=== PATIENT | male | born 1960 | race Caucasian/White ===

== ENCOUNTER 2018-10-08 11:23 | Inpatient (IN) ==
--- NOTE | 2018-10-08 11:34 | Emergency Department Note ---
Disposition Clinical Impression: Chest pain Qualifiers: Chest pain type: unspecified Qualified Code(s): R07.9 - Chest pain, unspecified Post-operative infection Qualifiers: Encounter type: initial encounter Postoperative infection type: deep incisional surgical site Qualified Code(s): T81.42XA - Infection following a procedure, deep incisional surgical site, initial encounter Sepsis Qualifiers: Sepsis type: sepsis due to unspecified organism Qualified Code(s): A41.9 - Sepsis, unspecified organism Disposition: Home, Self-Care Condition: Good Instructions: Chest Pain (ED) Referrals: Ashley Epps [employer] [Primary Care Provider] - Time of Disposition: 14:42 General Adult HPI - General Stated complaint: LOW BP Time Seen by Provider: 10/08/18 11:31 Source: patient, EMS Mode of arrival: EMS Limitations: no limitations Nursing Notes Reviewed: Yes Vital Signs Reviewed: Yes - History of Present Illness HPI Narrative: Patient presents to the ED with low blood pressure. Patient had a follow-up appointment today at the cancer center. He has newly diagnosed lung cancer. He is status post partial pneumonectomy with residual chest tube in place in the right chest wall. He states last night he was soaking wet and felt feverish but did not check it. He has had increasing, dark drainage in the chest tube. He is also had increasing pain in the area. Has not taken his [place] with no relief. EMS states that he was normotensive with them. - Related Data Home Medications Medication Instructions Recorded Confirmed Aspirin 81 mg PO DAILY 07/04/17 10/08/18 Atorvastatin Calcium [Lipitor] 20 mg PO DAILY 07/04/17 10/08/18 Citalopram Hydrobromide 40 mg PO DAILY 07/04/17 10/08/18 [Citalopram HBr] Dulaglutide [Trulicity] 1.5 mg IJ GATICA 07/04/17 10/08/18 Insulin Glargine,Hum.rec.anlog 95 unit SQ DAILY 07/04/17 10/08/18 [Toujeo Solostar] Losartan Potassium [Cozaar] 100 mg PO DAILY 07/04/17 10/08/18 Metformin HCl [Metformin HCl ER] 1,000 mg PO BID 07/04/17 10/08/18 Metoprolol XL (24 HR) Succ [Toprol 100 mg PO DAILY 07/04/17 10/08/18 XL] Tamsulosin HCl [Flomax] 0.4 mg PO DAILY 07/04/17 10/08/18 Fluticasone Propionate Nasal 1 - 2 spray NS DAILY 08/29/18 10/08/18 [Flonase] Insulin ASPART [Novolog Flexpen] 5 unit SQ DAILY 08/29/18 10/08/18 Albuterol Sulfate [Ventolin Hfa] 2 puff IH Q4H PRN 09/26/18 10/08/18 Cyanocobalamin/Folic AC/Vit B6 1 tab PO DAILY 09/26/18 10/08/18 [Folbee Tablet] Icosapent Ethyl [Vascepa] 2 cap PO BID 09/26/18 10/08/18 hydroCHLOROthiazide 25 mg PO DAILY 09/26/18 10/08/18 [Hydrochlorothiazide] Loratadine/Pseudoephedrine 1 tab PO DAILY PRN 09/27/18 10/08/18 [Allergy Relief D-24Hr Tablet] Ferrous Sulfate PO DAILY 10/08/18 Allergies Allergy/AdvReac Type Severity Reaction Status Date / Time canagliflozin [From Invokana] Allergy Rash Verified 10/08/18 11:36 dapagliflozin [From Farxiga] Allergy Blister Verified 10/08/18 11:36 oxycodone [Oxycodone] Allergy Rash Verified 10/08/18 11:36 All systems ED: reviewed and negative except as stated. Constitutional: Reports: fever, chills Cardiovascular: Reports: chest pain. Denies: palpitations Respiratory: Reports: dyspnea. Denies: wheezes Gastrointestinal: Denies: nausea, vomiting, diarrhea Past Medical History - Past Medical History Attestation: Yes The following information was validated with the patient. Source: patient Medical history: Reports: arthritis, cancer, diabetes, hyperlipidemia, hypertension, thyroid disease Surgical history: Reports: no surgical history, non-contributory Psychiatric history: Reports: anxiety, depression, PTSD - Social History Smoking Status: Former smoker Smokeless Tobacco Status: No Alcohol use: Reports: none Drug use: Reports: none Physical Exam Awake and alert in no distress. Patient became visibly dyspneic when he sat up, but it resolved with rest. - General Limitations: no limitations General appearance: alert, in no apparent distress - Head Head exam: atraumatic, normocephalic - Eye Eye exam: Present: normal appearance - ENT ENT exam: mucous membranes moist - Neck Neck exam: Present: normal inspection - Chest Chest inspection: Present: symmetric chest wall rise, other (Chest tube present in the right lateral chest wall.) - Respiratory Respiratory exam: Present: normal lung sounds bilaterally - Cardiovascular Cardiovascular exam: Present: regular rate, normal rhythm - Abdominal Exam Abdominal exam: Present: soft, Non-Tender - Neurological Exam Neurological exam: Present: alert, oriented X3 - Psychiatric Psychiatric exam: Present: normal affect - Skin Skin exam: Present: warm, dry Course - Reevaluation(s) Reevaluation #1: Patient feeling better after pain medication. Patient has a leukocytosis with a bandemia. He has been normotensive here. He is received IV Zosyn and vancomycin. We will add Levaquin for double pseudomonas coverage. Dr. Ross was seen in consult. Admitted to medicine. Patient is hemolytically stable at this time. Time: 14:40 - Consultations Consultation #1: Dr Fry accepts. Dr Castellon agrees with plan and will see in consultation. Time: 14:40 Vital Signs Temperature 98.1 F 10/08/18 11:27 Pulse Rate 109 10/08/18 11:27 Respiratory Rate 20 10/08/18 11:27 Blood Pressure 106/66 10/08/18 11:27 O2 Sat by Pulse Oximetry 95 10/08/18 11:27 Temperature 98.1 F 10/08/18 11:27 Pulse Rate 103 10/08/18 14:12 Respiratory Rate 18 10/08/18 14:12 Blood Pressure 100/63 10/08/18 14:12 O2 Sat by Pulse Oximetry 95 10/08/18 14:12 Oxygen Delivery Oxygen Delivery Room Air Medical Decision Making - Lab Data Result diagrams: 10/08/18 11:40 10/08/18 11:40 Lab Results 10/08/18 10/08/18 10/08/18 Range/Units 11:40 11:40 11:40 WBC 32.7 H* D (4.3-11.1) K/mcL RBC 4.51 (4.19-5.50) M/mcL Hgb 12.9 (12.9-16.9) g/dL Hct 38.5 (37.5-50.1) % MCV 85.4 (83.0-100.0) fL MCH 28.6 (28.0-33.3) pg MCHC 33.5 (31.6-35.5) g/dL RDW 14.4 (11.5-14.5) % Plt Count 324 (140-400) K/mcL MPV 10.2 (9.4-12.4) fL Seg Neutrophils % 80.0 % Band Neutrophils % 16.0 H (0-4) % Lymphocytes % 2.0 % Basophils % 2.0 % Neutrophils # 31.4 H (1.6-8.9) K/mcL Lymphocytes # 0.7 (0.6-4.6) K/mcL Basophils # 0.7 H (0.0-0.2) K/mcL Platelet Estimate Normal (Normal) PT 14.0 H (9.4-12.1) Seconds INR 1.2 APTT 36.2 H (26.0-36.0) Seconds Sodium 128 L (136-145) mEq/L Potassium 5.1 (3.5-5.1) mEq/L Chloride 93 L (98-107) mEq/L Carbon Dioxide 23 (23-29) mEq/L BUN 20 (6-20) mg/dL Creatinine 1.20 (0.70-1.30) mg/dL Est GFR ( Amer) > 60 (> 60) Est GFR (Non-Af Amer) > 60 (> 60) BUN/Creatinine Ratio 17 (6-26) Glucose 280 H (70-105) mg/dL Calculated Osmolality 279 L (280-300) Lactic Acid (0.5-2.2) mmol/L Calcium 8.9 (8.6-10.3) mg/dL Phosphorus 3.7 (2.7-4.5) mg/dL Magnesium 1.6 (1.6-2.6) mg/dL Total Bilirubin 0.9 (0.3-1.0) mg/dL Direct Bilirubin 0.2 (0.0-0.2) mg/dL Indirect Bilirubin 0.7 (0.0-1.2) mg/dL AST 17 (13-39) Units/L ALT 24 (7-52) Units/L Alkaline Phosphatase 85 (34-104) Units/L Troponin I 0.04 H* (< 0.04) ng/mL Serum Total Protein 6.6 (6.4-8.9) g/dL Albumin 3.7 (3.5-5.7) g/dL Globulin 2.9 (2.4-3.5) g/dL Albumin/Globulin Ratio 1.3 (1.1-2.2) 10/08/18 Range/Units 11:40 WBC (4.3-11.1) K/mcL RBC (4.19-5.50) M/mcL Hgb (12.9-16.9) g/dL Hct (37.5-50.1) % MCV (83.0-100.0) fL MCH (28.0-33.3) pg MCHC (31.6-35.5) g/dL RDW (11.5-14.5) % Plt Count (140-400) K/mcL MPV (9.4-12.4) fL Seg Neutrophils % % Band Neutrophils % (0-4) % Lymphocytes % % Basophils % % Neutrophils # (1.6-8.9) K/mcL Lymphocytes # (0.6-4.6) K/mcL Basophils # (0.0-0.2) K/mcL Platelet Estimate (Normal) PT (9.4-12.1) Seconds INR APTT (26.0-36.0) Seconds Sodium (136-145) mEq/L Potassium (3.5-5.1) mEq/L Chloride (98-107) mEq/L Carbon Dioxide (23-29) mEq/L BUN (6-20) mg/dL Creatinine (0.70-1.30) mg/dL Est GFR ( Amer) (> 60) Est GFR (Non-Af Amer) (> 60) BUN/Creatinine Ratio (6-26) Glucose (70-105) mg/dL Calculated Osmolality (280-300) Lactic Acid 2.9 H (0.5-2.2) mmol/L Calcium (8.6-10.3) mg/dL Phosphorus (2.7-4.5) mg/dL Magnesium (1.6-2.6) mg/dL Total Bilirubin (0.3-1.0) mg/dL Direct Bilirubin (0.0-0.2) mg/dL Indirect Bilirubin (0.0-1.2) mg/dL AST (13-39) Units/L ALT (7-52) Units/L Alkaline Phosphatase (34-104) Units/L Troponin I (< 0.04) ng/mL Serum Total Protein (6.4-8.9) g/dL Albumin (3.5-5.7) g/dL Globulin (2.4-3.5) g/dL Albumin/Globulin Ratio (1.1-2.2) - Radiology Data Radiology results reviewed: Yes I reviewed the patient's radiology results. Chest X-Ray 10/08/18 11:32 IMPRESSION: Right thoracostomy tube in place. Previously noted right pneumothorax is not appreciated on today's study. Small right pleural effusion with adjacent atelectasis. D/ / Jovana Bangura MD / Jovana Bangura MD Interpreting Provider: Jovana Bangura MD Chest CT 10/08/18 12:23 IMPRESSION: 1. Postsurgical changes from right upper and middle lobectomies. There is a right thoracostomy tube in place with associated small right hydropneumothorax. Mild stranding along the right thoracostomy tube with associated debris within the tube itself is noted. 2. Subcutaneous emphysema in the right chest wall. 3. Small amount of fluid in the right mediastinum with a small focal collection in the right paratracheal space measuring 3.6 x 2.2 cm foci of gas. Findings may be postsurgical in etiology, however infection is not excluded. Small amount of pneumomediastinum in the anterior aspect is also noted. 4. Trace perihepatic ascites with at least 2 discrete extraluminal foci of gas adjacent to the lateral liver. No other claude pneumoperitoneum. 5. Post-thoracotomy changes involving the right 6th and 7th ribs. These rib fractures appear slightly more displaced radiographically when compared to immediate postoperative film from 09/26/2018. Asymmetric enlargement of the right lateral chest wall musculature with mixed density likely reflecting areas of evolving hematoma secondary to recent surgery. D/ / 10/08/2018 14:01:04 Jovana Bangura MD / ml Interpreting Provider: Jovana Bangura MD - EKG Data EKG #1 EKG attestation: Yes I reviewed and interpreted this EKG. EKG results narrative: EKG sinus tach at 110. Normal QRS. Normal ST segments. Normal axis. Unchanged from prior EKG other than the tachycardia. Critical Care Time Critical Care Time: Yes Total Critical Care Time: 40 Attestation: Critical care performed: Time is exclusive of separately billable procedures. Time includes: direct patient care, patient reassessment, coordination of patient care, interpretation of data (laboratory data, radiology data, and respiratory data), review of patient's medical records, medical consultation and documentation of patient care. Procedures included in critical care time: Procedures excluded from critical care time:
[2018-10-08] MEDS ORDERED: 0.9 % Sodium Chloride 1,000 ML IVC ONE (11:47)
[2018-10-08] MEDS ORDERED: *HR* FentaNYL (PF) 100 MCG/2 ML VIAL IVP ONE (11:47)
[2018-10-08] MEDS ORDERED: Isovue-370 500 ML BOTTLE IVP ONE (12:23)
[2018-10-08 12:25] LABS: Mean Corpuscular HGB Conc 33.5 g/dL (31.6-35.5); Mean Corpuscular Hemoglobin 28.6 pg (28.0-33.3)
[2018-10-08 12:26] LABS: Hematocrit 38.5 % (37.5-50.1); Hemoglobin 12.9 g/dL (12.9-16.9); Mean Corpuscular Volume 85.4 fL (83.0-100.0); Mean Platelet Volume 10.2 fL (9.4-12.4); Platelet Count 324 K/mcL (140-400); Red Blood Count 4.51 M/mcL (4.19-5.50); Red Cell Distribution Width 14.4 % (11.5-14.5)
[2018-10-08 12:30] LABS: INR 1.2
[2018-10-08 12:33] LABS: Activated Partial Thrombo Time 36.2 Seconds (26.0-36.0)
[2018-10-08] MEDS ORDERED: Piperacillin/Tazobactam 3.375 GM in Water for inj. (sterile) 20 ML 20 ML IVP ONE (12:40)
[2018-10-08 12:47] LABS: BUN/Creatinine Ratio 17 (6-26); Blood Urea Nitrogen 20 mg/dL (6-20); Carbon Dioxide 23 mEq/L (23-29); Chloride 93 mEq/L (98-107); Glucose 280 mg/dL (70-105); Potassium 5.1 mEq/L (3.5-5.1); Sodium 128 mEq/L (136-145); eGFR For Non-African Americans > 60 (> 60)
[2018-10-08 12:48] LABS: Alanine Aminotransferase 24 Units/L (7-52); Albumin 3.7 g/dL (3.5-5.7); Albumin/Globulin Ratio 1.3 (1.1-2.2); Alkaline Phosphatase 85 Units/L (34-104); Aspartate Amino Transferase 17 Units/L (13-39); Bilirubin,Direct 0.2 mg/dL (0.0-0.2); Bilirubin,Indirect 0.7 mg/dL (0.0-1.2); Bilirubin,Total 0.9 mg/dL (0.3-1.0); Calcium 8.9 mg/dL (8.6-10.3); Globulin 2.9 g/dL (2.4-3.5); Magnesium 1.6 mg/dL (1.6-2.6); Osmolality,Calculated 279 (280-300); Phosphorous 3.7 mg/dL (2.7-4.5); Total Protein 6.6 g/dL (6.4-8.9); Troponin I 0.04 ng/mL (< 0.04)
[2018-10-08 13:10] LABS: Basophils # 0.7 K/mcL (0.0-0.2); Lymphocytes # 0.7 K/mcL (0.6-4.6); Neutrophils # 31.4 K/mcL (1.6-8.9); Platelet Estimate Normal (Normal)
[2018-10-08] MEDS ORDERED: *HR* HYDROmorphone (PF) 1 MG/ML SYRINGE IVP ONE (14:04)
[2018-10-08] MEDS ORDERED: Levofloxacin 750 MG/150 ML 750 MG/150 ML BAG IVPB ONE (14:32)
--- NOTE | 2018-10-08 16:49 | Internal Med History&Physical ---
Date of Encounter: 10/08/18 Time of Encounter: 16:45 Internal Medicine - H&P: HPI Chief complaint: Generalized weakness, dizziness Admitted From: Emergency Dept Plans for Post Hospital Care: Home History of present illness: Mr. Cooper is a 58 year old male patient with history of diabetes, hypertension and hyperlipidemia, lung cancer status post recent right upper and middle bilobectomy, lymph node resection for right upper lobe lung cancer presented to the ER from oncology clinic due to concerns for sepsis. Patient was noted to have low blood pressure at the clinic weak and tired for the past couple of days. He felt very dizzy yesterday. He has right-sided chest pain related to his cancer and recent surgery. Also has some shortness of breath. He has not had any fevers or chills recently. He was supposed to start chemotherapy 30 days after his surgery. He received IV fluids in the ER along with antibiotics with some improvement in his symptoms. Denies any nausea or vomiting. No diarrhea. No abdominal pain. Past Med Surg Social Fam HX - Past Medical History Medical history: arthritis, cancer, diabetes, hyperlipidemia, hypertension, thyroid disease Additional medical history: sleep apnea. 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 BPH, lung CA Psychiatric history: anxiety, depression, PTSD - Past Surgical History Surgical History: no surgical history, non-contributory Additional surgical history: septoplasty & turbinate reduction, portions of R lung removed-CA - Social History Smoking Status: Former smoker Smokeless Tobacco Status: No Alcohol use: none Drug use: none - Additional Family History Additional family history: Family history reviewed and found to be nonco ntributory at this time Internal Medicine - H&P: Meds Aspirin 81 mg PO DAILY 07/04/17 [History] Atorvastatin Calcium [Lipitor] 20 mg PO DAILY 07/04/17 [History] Citalopram Hydrobromide [Citalopram HBr] 40 mg PO DAILY 07/04/17 [History] Dulaglutide [Trulicity] 1.5 mg IJ GATICA 07/04/17 [History] Insulin Glargine,Hum.rec.anlog [Concepcion Solostwilma] 95 unit SQ HS 07/04/17 [History] Losartan Potassium [Cozaar] 100 mg PO DAILY 07/04/17 [History] Tamsulosin HCl [Flomax] 0.4 mg PO DAILY 07/04/17 [History] Fluticasone Propionate Nasal [Flonase] 2 spray NS DAILY 08/29/18 [History] Insulin ASPART [Novolog Flexpen] 5 unit SQ DAILY 08/29/18 [History] Albuterol Sulfate [Ventolin Hfa] 2 puff IH Q4H PRN 09/26/18 [History] Cyanocobalamin/Folic AC/Vit B6 [Folbee Tablet] 1 tab PO DAILY 09/26/18 [History] Icosapent Ethyl [Vascepa] 2 cap PO BID 09/26/18 [History] hydroCHLOROthiazide [Hydrochlorothiazide] 25 mg PO DAILY 09/26/18 [History] Loratadine/Pseudoephedrine [Allergy Relief D-24Hr Tablet] 1 tab PO DAILY PRN 09/27/18 [History] Amiodarone [Cordarone] 200 mg PO DAILY 10/08/18 [History] Ferrous Sulfate [Iron] 325 mg PO DAILY 10/08/18 [History] Gabapentin [Neurontin] 300 mg PO TID 10/08/18 [History] Metoprolol Succinate [Toprol Xl] 100 mg PO DAILY 10/08/18 [History] metFORMIN [Glucophage] 1,000 mg PO BIDWM 10/08/18 [History] Allergy/AdvReac Type Severity Reaction Status Date / Time [facility] Allergy Rash Verified 10/08/18 11:36 dapagliflozin [From Farxiga] Allergy Blister Verified 10/08/18 11:36 oxycodone [Oxycodone] Allergy Rash Verified 10/08/18 11:36 All Systems PM: A 10-system review of systems was performed and is negative for pertinent findings except as documented above in the HPI. - Constitutional Constitutional: fatigue, lethargy, malaise, weakness, no chills, no fever(s), no night sweats - EENT Eyes: no change in vision, no discharge, no pain, no photophobia Ears: no ear discharge, no ear pain, no tinnitus Nose, mouth and throat: no dysphagia, no nasal discharge, no neck pain, no sore throat - Cardiovascular Cardiovascular ROS IM: lightheadedness, no chest pain, no diaphoresis, no dyspnea, no palpitations, no syncope - Respiratory Respiratory: no cough, no dyspnea, no wheezing, no excessive phlegm production - Gastrointestinal Gastrointestinal: no abdominal pain, no diarrhea, no hematemesis, no dinh tochezia, no melena, no nausea, no vomiting - Musculoskeletal Musculoskeletal ROS IM: no numbness, no tingling - Integumentary Integumentary IM: no rash, no unusual bruising - Neurological Neurological ROS: no confusion, no convulsions, no focal weakness, no numbness, no tingling, no tremor(s) - Hematologic/Lymphatic Hematologic/Lymphatic: no easy bruising - Constitutional Vitals: Temp Pulse Resp BP Pulse Ox 98.1 F 109 25 139/82 96 10/08/18 16:18 10/08/18 16:18 10/08/18 16:18 10/08/18 16:18 10/08/18 16:18 General appearance: Present: cooperative, mild distress, A&O X 3, morbidly obese, pleasant, answers questions appropriately Exam: General: Patient is alert, mild distress, oriented x 3 Head: atraumatic, normocephalic, ENT: Mucous membranes moist Eye: normal appearance, PERRL, no scleral icterus, no conjunctival injection Neck: normal inspection, trachea midline, full ROM, no carotid bruits Chest: normal inspection, symmetric chest rise Respiratory: Decreased breath sounds in the right lung space. Right-sided chest tube in place. Cardiovascular: Regular rate and rhythm. s1 and s2 normal No clicks, rubs, ga llops, or murmurs. Mild bilateral pitting pedal edema Abdomen: Abdomen is soft, nontender. Bowel sounds are present Musculoskeletal: Spontaneously moving all extremities Skin: warm, dry, intact. Neuro: Alert oriented x 3 normal cranial nerves, no focal deficits Psych: Patient's affect is normal Internal Med - H&P Results - Labs CBC & Chem 7: 10/08/18 11:40 10/08/18 11:40 Labs: Short CBC 10/08/18 Range/Units 11:40 WBC 32.7 H* D (4.3-11.1) K/mcL Hgb 12.9 (12.9-16.9) g/dL Hct 38.5 (37.5-50.1) % Plt Count 324 (140-400) K/mcL Neutrophils # 31.4 H (1.6-8.9) K/mcL BMP 10/08/18 11:40 Sodium 128 L Potassium 5.1 Chloride 93 L Carbon Dioxide 23 BUN 20 Creatinine 1.20 Glucose 280 H Calcium 8.9 Cardiac Enzymes 10/08/18 Range/Units 11:40 Troponin I 0.04 H* (< 0.04) ng/mL Liver Function 10/08/18 Range/Units 11:40 Total Bilirubin 0.9 (0.3-1.0) mg/dL Direct Bilirubin 0.2 (0.0-0.2) mg/dL AST 17 (13-39) Units/L ALT 24 (7-52) Units/L Alkaline Phosphatase 85 (34-104) Units/L Albumin 3.7 (3.5-5.7) g/dL - Impressions ITS Impressions Chest X-Ray 10/08/18 11:32 IMPRESSION: Right thoracostomy tube in place. Previously noted right pneumothorax is not appreciated on today's study. Small right pleural effusion with adjacent atelectasis. D/ / Jovana Bangura MD / Jovana Bangura MD Interpreting Provider: Jovana Bangura MD Chest CT 10/08/18 12:23 IMPRESSION: 1. Postsurgical changes from right upper and middle lobectomies. There is a right thoracostomy tube in place with associated small right hydropneumothorax. Mild stranding along the right thoracostomy tube with associated debris within the tube itself is noted. 2. Subcutaneous emphysema in the right chest wall. 3. Small amount of fluid in the right mediastinum with a small focal collection in the right paratracheal space measuring 3.6 x 2.2 cm foci of gas. Findings may be postsurgical in etiology, however infection is not excluded. Small amount of pneumomediastinum in the anterior aspect is also noted. 4. Trace perihepatic ascites with at least 2 discrete extraluminal foci of gas adjacent to the lateral liver. No other claude pneumoperitoneum. 5. Post-thoracotomy changes involving the right 6th and 7th ribs. These rib fractures appear slightly more displaced radiographically when compared to immediate postoperative film from 09/26/2018. Asymmetric enlargement of the right lateral chest wall musculature with mixed density likely reflecting areas of evolving hematoma secondary to recent surgery. D/ / 10/08/2018 14:01:04 Jovana Bangura MD / ml Interpreting Provider: Jovana Bangura MD - Assessment and Plan (1) Sepsis Current Visit: Yes Status: Suspected Assessment and plan: Patient presents with symptoms of sepsis related to possible infection in the right lung space following recent surgery. Drainage from chest tube appears purulent. Consult with cardiothoracic surgery. Will place patient on broad- spectrum antibiotics. High risk for complications. Lactic acid 2.9 initially. We will check the levels later again. Patient was hypotensive initially but blood pressure has improved after aggressive fluid management in the ER. We will continue to monitor input and output. Qualifiers: Sepsis type: methicillin resistant Staphylococcus aureus Qualified Code(s): A41.02 - Sepsis due to Methicillin resistant Staphylococcus aureus (2) Diabetes mellitus, insulin dependent (IDDM), controlled Current Visit: Yes Status: Chronic Assessment and plan: Blood sugars elevated at this time. Will place patient on sliding scale insulin. (3) Essential hypertension Current Visit: Yes Status: Chronic Assessment and plan: Monitor blood pressure. Resume home medications when blood pressure tolerates (4) Postoperative atrial fibrillation Current Visit: Yes Status: Chronic Assessment and plan: History of postoperative atrial fibrillation currently appears to be in sinus tachycardia. He is on amiodarone. We will resume this medication. - Time Spent With Patient Total time spent is greater than 50% in coordination of care (as documented) at patient's floor/unit and/or counseling patient:
[2018-10-08] MEDS ORDERED: Acetaminophen 325 MG TABLET PO PRN (18:00)
[2018-10-08] MEDS ORDERED: Vancomycin 0 MG in 0.9 % Sodium Chloride 250 ML IVPB SCH (18:00)
[2018-10-08] MEDS: *HR* Heparin 5,000 UNIT/ML VIAL SQ SCH (18:08)
[2018-10-08] MEDS ORDERED: *HR* Dextrose 50 % in Water (Syg) 50 ML SYRINGE IVP PRN (18:24)
[2018-10-08] MEDS ORDERED: Dextrose Gel 15 GM/37.5 ML TUBE PO PRN ×2 (18:24)
[2018-10-08] MEDS ORDERED: D5% in Water 1,000 ML IVC PRN (18:24)
[2018-10-08] MEDS: Insulin LISPRO 300 UNITS/3 ML VIAL SQ SCH ×2 (20:18→20:23)
[2018-10-08] MEDS: *HR* HYDROcodone/Acet 10/325 mg TABLET PO PRN (20:20)
[2018-10-08] MEDS: Gabapentin 300 MG CAPSULE PO SCH (20:20)
[2018-10-08] MEDS: Doxycycline 100 MG in 0.9 % Sodium Chloride Mini Bag 100 ML IVPB SCH (20:22)
[2018-10-08] MEDS: Insulin DETEMIR 100 UNIT/ML X5UNITS SQ SCH (20:29)
[2018-10-08] MEDS: Piperacillin/Tazobactam 3.375 GM in 0.9 % Sodium Chloride Mini Bag 100 ML IVPB SCH (20:29)
--- NOTE | 2018-10-08 23:32 | Electrocardiograph Report ---
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
[2018-10-09] MEDS: *HR* HYDROcodone/Acet 10/325 mg TABLET PO PRN ×3 (05:56→18:58)
[2018-10-09] MEDS: Doxycycline 100 MG in 0.9 % Sodium Chloride Mini Bag 100 ML IVPB SCH ×2 (06:04→17:19)
[2018-10-09] MEDS: Piperacillin/Tazobactam 3.375 GM in 0.9 % Sodium Chloride Mini Bag 100 ML IVPB SCH ×3 (06:04→22:29)
[2018-10-09] MEDS: *HR* Heparin 5,000 UNIT/ML VIAL SQ SCH ×2 (06:05→17:31)
[2018-10-09] MEDS: Insulin DETEMIR 100 UNIT/ML X5UNITS SQ SCH ×2 (08:15→22:30)
[2018-10-09] MEDS: Aspirin 81 MG TAB.CHEW PO SCH (08:16)
[2018-10-09] MEDS: Metoprolol XL (24 HR) Succ 50 MG TAB.ER.24H PO SCH (08:16)
[2018-10-09] MEDS: Gabapentin 300 MG CAPSULE PO SCH ×3 (08:16→22:29)
[2018-10-09] MEDS: hydroCHLOROthiazide 25 MG TABLET PO SCH (08:16)
[2018-10-09] MEDS: Insulin LISPRO 300 UNITS/3 ML VIAL SQ SCH ×4 (08:17→22:30)
[2018-10-09] MEDS: *HR* Amiodarone 200 MG TABLET PO SCH (08:17)
[2018-10-09] MEDS: Fluticasone Propionate Nasal 50 MCG/SPRAY BOTTLE NS SCH (08:18)
[2018-10-09] MEDS ORDERED: CYANOCOBALAMIN PO SCH (09:00)
[2018-10-09] MEDS ORDERED: FOLIC AC PO SCH (09:00)
[2018-10-09] MEDS ORDERED: VIT B6 PO SCH (09:00)
[2018-10-09 09:19] LABS: Basophils % 0.1 %; Eosinophils # 0.1 K/mcL (0.0-0.6); Eosinophils % 0.9 %; Hematocrit 33.5 % (37.5-50.1); Immature Granulocytes % 0.4 % (0-4); Lymphocytes # 0.6 K/mcL (0.6-4.6); Lymphocytes % 4.4 %; Mean Corpuscular HGB Conc 32.8 g/dL (31.6-35.5); Mean Corpuscular Hemoglobin 28.1 pg (28.0-33.3); Mean Corpuscular Volume 85.5 fL (83.0-100.0); Mean Platelet Volume 9.9 fL (9.4-12.4); Monocytes # 0.8 K/mcL (0.0-1.3); Monocytes % 5.7 %; Neutrophils # 12.5 K/mcL (1.6-8.9); Platelet Count 259 K/mcL (140-400); Red Blood Count 3.92 M/mcL (4.19-5.50); Segmented Neutrophils % 88.5 %
[2018-10-09 09:31] LABS: Alanine Aminotransferase 21 Units/L (7-52); Albumin 3.1 g/dL (3.5-5.7); Albumin/Globulin Ratio 1.1 (1.1-2.2); Alkaline Phosphatase 68 Units/L (34-104); Aspartate Amino Transferase 41 Units/L (13-39); BUN/Creatinine Ratio 20 (6-26); Bilirubin,Direct 0.2 mg/dL (0.0-0.2); Bilirubin,Indirect 0.6 mg/dL (0.0-1.2); Bilirubin,Total 0.8 mg/dL (0.3-1.0); Blood Urea Nitrogen 17 mg/dL (6-20); Calcium 8.4 mg/dL (8.6-10.3); Carbon Dioxide 22 mEq/L (23-29); Chloride 98 mEq/L (98-107); Globulin 2.8 g/dL (2.4-3.5); Glucose 123 mg/dL (70-105); Osmolality,Calculated 273 (280-300); Potassium 3.9 mEq/L (3.5-5.1); Sodium 130 mEq/L (136-145); Total Protein 5.9 g/dL (6.4-8.9); eGFR For Non-African Americans > 60 (> 60)
--- NOTE | 2018-10-09 09:33 | Cardiothoracic Progress Note ---
Date of Encounter: 10/09/18 Time of Encounter: 09:31 - Assessment and plan (1) Empyema of lung Current Visit: Yes Status: Acute The assessment and plan as outlined above was discussed with the patient and/or family members who expressed understanding and agreement. All questions were answered. made rounds with nurse. agreed with her, mucus membranes dry and urine dark and foul smelling. start ivf, labs and xrays for 2 days, chest tube to 40 of suc tion - Subjective Interval history: feels tired Vital Signs, Last 4 Hours Temp Pulse Resp BP Pulse Ox 10/09/18 07:09 98.6 F 106 16 140/78 94 Oxgyen Flow Rate Oxygen Flow Rate (LPM) 2 Clinical Data, last 8 Hours Output, Chest Tube Drainage 80 Amount [Right Lateral Chest] Output, Chest Tube Drainage 30 Amount [Right Lateral Chest] Output, Urine Amount 200 Weight 10/07/18 10/08/18 10/09/18 23:59 23:59 23:59 Weight 125.5 kg 125.4 kg - Physical Examination General: Conversant, No Apparent Distress HEENT: Atraumatic, Normocephaly Incision: No signs of infection, Dry/intact dressing Chest tubes: Minimal drainage, Other (purulent ) Neuro: Alert and responsive, No focal deficits noted, Cranial nerves intact - Labs 10/08/18 11:40 10/08/18 11:40 Lab Results, Last 24 hours 10/08/18 10/08/18 10/08/18 11:40 11:40 11:40 WBC 32.7 H* D Hgb 12.9 Hct 38.5 Plt Count 324 INR 1.2 APTT 36.2 H Sodium 128 L Potassium 5.1 Chloride 93 L Carbon Dioxide 23 BUN 20 Creatinine 1.20 Glucose 280 H Calcium 8.9 Magnesium 1.6 Total Bilirubin 0.9 AST 17 ALT 24 Alkaline Phosphatase 85 Troponin I 0.04 H* Consult Discharge Plan - Plan
[2018-10-09 10:21] LABS: Acinetobacter baumannii by PCR Not Detected (Not Detect); Candida albicans by PCR Not Detected (Not Detect); Candida glabrata by PCR Not Detected (Not Detect); Candida krusei by PCR Not Detected (Not Detect); Candida parapsilosis by PCR Not Detected (Not Detect); Candida tropicalis by PCR Not Detected (Not Detect); Enterobacter cloacae Cmplx PCR Not Detected (Not Detect); Enterobacteriaceae by PCR Not Detected (Not Detect); Enterococcus by PCR Not Detected (Not Detect); Escherichia coli by PCR Not Detected (Not Detect); Klebsiella oxytoca by PCR Not Detected (Not Detect); Klebsiella pneumoniae by PCR Not Detected (Not Detect); Proteus by PCR Not Detected (Not Detect); Pseudomonas aeruginosa by PCR Not Detected (Not Detect); Serratia marcescens by PCR Not Detected (Not Detect); Staphylococcus aureus by PCR DETECTED (Not Detect); Staphylococcus by PCR DETECTED (Not Detect); Streptococcus agalactiae(B)PCR Not Detected (Not Detect); Streptococcus by PCR Not Detected (Not Detect); Streptococcus pneumoniae PCR Not Detected (Not Detect); Streptococcus pyogenes (A) PCR Not Detected (Not Detect)
[2018-10-09] MEDS: 0.9 % Sodium Chloride 1,000 ML IVC SCH (12:07)
--- NOTE | 2018-10-09 19:00 | Internal Med Progress Note ---
Hospitalist Progress Note - Encounter Date of Encounter: 10/09/18 Time of Encounter: 11:00 - Subjective Interval History: Patient is a 58-year-old male with past medical history significant for right lung adenocarcinoma stage III/grade 3 status post right upper and middle bilobectomy who presents due to fever and chills found to be septic secondary to right lung empyema - Exam Vitals: Temp Pulse Resp BP Pulse Ox 98.5 F 86 16 97/57 96 10/09/18 16:37 10/09/18 16:37 10/09/18 16:37 10/09/18 16:37 10/09/18 16:37 Exam: Gen.: Nonacute distress, alert and oriented 3 ENT: Mucosal membranes moist Respiratory: Lungs are clear to auscultation bilaterally without any wheezing rhonchi or rales Cardiovascular: Normal S1 and S2 regular rate rhythm no murmurs rubs or gallops Abdomen: Soft, nontender and nondistended with positive bowel sounds Extremities: No lower extremity edema Skin: Normal colortion - Assessment and Plan (1) Empyema of lung Current Visit: Yes Status: Acute Assessment and Plan: Patient with past medical history significant for right lung adenocarcinoma stage III/grade 3 status post right upper and middle bilobectomy who presents due to fever and chills found to be septic secondary to right lung empyema Cardiothoracic following with recommendations for chest tube with low wall suction Patient currently on IV vancomycin and IV Zosyn IV doxycycline Will consult infectious disease and appreciate recommendations. (2) Sepsis Current Visit: Yes Status: Suspected Assessment and Plan: Patient presents with symptoms of sepsis related to possible infection in the right lung space following recent surgery. Drainage from chest tube appears purulent; cardiothoracic surgery following. Will continue IV antibiotics as above and will consult ID and appreciate recommendations. (3) Essential hypertension Current Visit: Yes Status: Chronic Assessment and Plan: Monitor blood pressure. Resume home medications when blood pressure tolerates (4) Postoperative atrial fibrillation Current Visit: Yes Status: Chronic Assessment and Plan: History of postoperative atrial fibrillation currently appears to be in sinus tachycardia. Continue amiodarone (5) Diabetes mellitus, insulin dependent (IDDM), controlled Current Visit: Yes Status: Chronic Assessment and Plan: Coverage with sliding-scale insulin DVT Prophylaxis: Heparin subcutaneous - Time Spent with Patient Total time spent is greater than 50% in coordination of care (as documented) at patient's floor/unit and/or counseling patient: Internal Medicine: Result - Labs CBC & Chem 7: 10/09/18 08:29 10/09/18 08:29 Labs: Short CBC 10/09/18 Range/Units 08:29 WBC 14.1 H D (4.3-11.1) K/mcL Hgb 11.0 L D (12.9-16.9) g/dL Hct 33.5 L (37.5-50.1) % Plt Count 259 (140-400) K/mcL Neutrophils # 12.5 H (1.6-8.9) K/mcL BMP 10/09/18 08:29 Sodium 130 L Potassium 3.9 Chloride 98 Carbon Dioxide 22 L BUN 17 Creatinine 0.84 Glucose 123 H Calcium 8.4 L Liver Function 10/09/18 Range/Units 08:29 Total Bilirubin 0.8 (0.3-1.0) mg/dL Direct Bilirubin 0.2 (0.0-0.2) mg/dL AST 41 H (13-39) Units/L ALT 21 (7-52) Units/L Alkaline Phosphatase 68 (34-104) Units/L Albumin 3.1 L (3.5-5.7) g/dL - ABG Interpretation ABG results: PT/INR, D-dimer PT 14.0 Seconds (9.4-12.1) H 10/08/18 11:40 Consult Discharge Plan - Plan Referrals: Denzel Melraa MD [Partnered Physician] - 10/22/18 1:25 pm Ashley Epps, [employer] [Primary Care Provider] - (2) Sepsis Qualifiers: Sepsis type: methicillin resistant Staphylococcus aureus Qualified Code(s): A41.02 - Sepsis due to Methicillin resistant Staphylococcus aureus
[2018-10-10] MEDS: *HR* HYDROcodone/Acet 10/325 mg TABLET PO PRN ×3 (00:58→17:01)
[2018-10-10 01:56] LABS: Hematocrit 29.3 % (37.5-50.1); Hemoglobin 9.6 g/dL (12.9-16.9); Mean Corpuscular HGB Conc 32.8 g/dL (31.6-35.5); Mean Corpuscular Hemoglobin 28.1 pg (28.0-33.3); Mean Corpuscular Volume 85.7 fL (83.0-100.0); Mean Platelet Volume 9.9 fL (9.4-12.4); Platelet Count 248 K/mcL (140-400); Red Blood Count 3.42 M/mcL (4.19-5.50); Red Cell Distribution Width 14.7 % (11.5-14.5)
[2018-10-10 02:16] LABS: BUN/Creatinine Ratio 21 (6-26); Blood Urea Nitrogen 20 mg/dL (6-20); Calcium 8.2 mg/dL (8.6-10.3); Carbon Dioxide 26 mEq/L (23-29); Chloride 99 mEq/L (98-107); Glucose 101 mg/dL (70-105); Magnesium 2.1 mg/dL (1.6-2.6); Osmolality,Calculated 275 (280-300); Potassium 3.8 mEq/L (3.5-5.1); Sodium 131 mEq/L (136-145); eGFR For Non-African Americans > 60 (> 60)
[2018-10-10] MEDS: 0.9 % Sodium Chloride 1,000 ML IVC SCH ×3 (03:14→21:30)
[2018-10-10] MEDS: Piperacillin/Tazobactam 3.375 GM in 0.9 % Sodium Chloride Mini Bag 100 ML IVPB SCH ×2 (05:43→12:20)
[2018-10-10] MEDS: Doxycycline 100 MG in 0.9 % Sodium Chloride Mini Bag 100 ML IVPB SCH (05:43)
[2018-10-10] MEDS: *HR* Heparin 5,000 UNIT/ML VIAL SQ SCH ×2 (05:44→17:00)
[2018-10-10] MEDS: Insulin LISPRO 300 UNITS/3 ML VIAL SQ SCH ×4 (08:05→21:34)
[2018-10-10] MEDS: *HR* Amiodarone 200 MG TABLET PO SCH (08:06)
[2018-10-10] MEDS: Aspirin 81 MG TAB.CHEW PO SCH (08:06)
[2018-10-10] MEDS: hydroCHLOROthiazide 25 MG TABLET PO SCH (08:07)
[2018-10-10] MEDS: Gabapentin 300 MG CAPSULE PO SCH ×3 (08:07→21:30)
[2018-10-10] MEDS: Metoprolol XL (24 HR) Succ 50 MG TAB.ER.24H PO SCH (08:07)
[2018-10-10] MEDS: Vitamin B Complex/Vit C/Vit E 1 EACH TABLET PO SCH (08:09)
[2018-10-10] MEDS: Fluticasone Propionate Nasal 50 MCG/SPRAY BOTTLE NS SCH (08:27)
[2018-10-10] MEDS: Insulin DETEMIR 100 UNIT/ML X5UNITS SQ SCH ×2 (08:36→21:32)
[2018-10-10] MEDS ORDERED: Aminoglycoside Consult 1 EACH MC ONE (08:39)
--- NOTE | 2018-10-10 08:53 | Internal Med Progress Note ---
Hospitalist Progress Note - Encounter Date of Encounter: 10/10/18 Time of Encounter: 11:00 - Subjective Interval History: Patient is a 58-year-old male with past medical history significant for right lung adenocarcinoma stage III/grade 3 status post right upper and middle bilobectomy who presents due to fever and chills found to be septic secondary to right lung empyema Patient's leukocytosis has resolved this morning on broad-spectrum IV antibiotics. Patient has been found to be bacteremic and cultures results still pending. - Exam Vitals: Temp Pulse Resp BP Pulse Ox 98 F 84 15 123/67 95 10/10/18 07:42 10/10/18 07:42 10/10/18 07:42 10/10/18 07:42 10/10/18 07:42 Exam: Gen.: Nonacute distress, alert and oriented 3 ENT: Mucosal membranes moist Respiratory: Lungs are clear to auscultation bilaterally without any wheezing rhonchi or rales Cardiovascular: Normal S1 and S2 regular rate rhythm no murmurs rubs or gallops Abdomen: Soft, nontender and nondistended with positive bowel sounds Extremities: No lower extremity edema Skin: Normal colortion - Assessment and Plan (1) Empyema of lung Current Visit: Yes Status: Acute Assessment and Plan: Patient with past medical history significant for right lung adenocarcinoma stage III/grade 3 status post right upper and middle bilobectomy who presents due to fever and chills found to be septic secondary to right lung empyema Cardiothoracic following with recommendations for chest tube with low wall suction Patient's leukocytosis has resolved this morning on broad-spectrum IV antibiotics. Patient has been found to be bacteremic and cultures results still pending. Will continue day 2 of broad-spectrum antibiotics with IV vancomycin, IV Zosyn IV and doxycycline (2) Sepsis Current Visit: Yes Status: Suspected Assessment and Plan: Resolved; continue management as above (3) Essential hypertension Current Visit: Yes Status: Chronic Assessment and Plan: Continue patient's home dose of Toprol and Cozaar (4) Postoperative atrial fibrillation Current Visit: Yes Status: Chronic Assessment and Plan: History of postoperative atrial fibrillation Continue amiodarone (5) Diabetes mellitus, insulin dependent (IDDM), controlled Current Visit: Yes Status: Chronic Assessment and Plan: Continue basal insulin and coverage with sliding-scale insulin (6) HLD (hyperlipidemia) Current Visit: Yes Status: Acute Assessment and Plan: Continue statin (7) Mood disorder Current Visit: Yes Status: Acute Assessment and Plan: Continue SSRI DVT Prophylaxis: Heparin subcutaneous - Time Spent with Patient Total time spent is greater than 50% in coordination of care (as documented) at patient's floor/unit and/or counseling patient: Internal Medicine: Result - Labs CBC & Chem 7: 10/10/18 01:24 10/10/18 01:24 Labs: Short CBC 10/09/18 10/10/18 Range/Units 08:29 01:24 WBC 14.1 H D 10.4 (4.3-11.1) K/mcL Hgb 11.0 L D 9.6 L (12.9-16.9) g/dL Hct 33.5 L 29.3 L (37.5-50.1) % Plt Count 259 248 (140-400) K/mcL Neutrophils # 12.5 H (1.6-8.9) K/mcL BMP 10/09/18 10/10/18 08:29 01:24 Sodium 130 L 131 L Potassium 3.9 3.8 Chloride 98 99 Carbon Dioxide 22 L 26 BUN 17 20 Creatinine 0.84 0.94 Glucose 123 H 101 Calcium 8.4 L 8.2 L Liver Function 10/09/18 Range/Units 08:29 Total Bilirubin 0.8 (0.3-1.0) mg/dL Direct Bilirubin 0.2 (0.0-0.2) mg/dL AST 41 H (13-39) Units/L ALT 21 (7-52) Units/L Alkaline Phosphatase 68 (34-104) Units/L Albumin 3.1 L (3.5-5.7) g/dL - ABG Interpretation ABG results: PT/INR, D-dimer PT 14.0 Seconds (9.4-12.1) H 10/08/18 11:40 - Impressions Impressions Chest X-Ray 10/10/18 08:00 IMPRESSION: Right-sided chest tube in place with residual right pleural effusion noted status post previous partial right lung resection. D/ / 10/10/2018 08:33:40 Raymond Ospina MD / Kisha Solis Interpreting Provider: Raymond Ospina MD Consult Discharge Plan - Plan Referrals: Denzel Melara MD [Partnered Physician] - 10/22/18 1:25 pm Ashley Epps CNP [Primary Care Provider] - (2) Sepsis Qualifiers: Sepsis type: methicillin resistant Staphylococcus aureus Qualified Code(s): A41.02 - Sepsis due to Methicillin resistant Staphylococcus aureus
--- NOTE | 2018-10-10 09:56 | Infectious Disease Consult ---
Infectious Disease-Consult - Encounter Date/Time Date of Encounter: 10/10/18 Time of Encounter: 11:00 - Data of Consult Requesting Physician: Stiven Lopez Primary Care Provider: Ashley Epps CNP - HPI HPI: Mr. Joe Cooper is a 58 year-old male who was admitted for sepsis secondary to empyema on 10/08/18. Infectious disease was consulted on 10/10/18 for post surgical empyema and sepsis. Patient is a 58-year-old male with a pertinent past medical history of A. fib, insulin-dependent type 2 diabetes, hypertension, and right lung adenocarcinoma status post recent bilobectomy was admitted to the hospital with severe sepsis secondary to likely empyema. Patient was recently discharged after right upper lobe and middle lobe bilobectomy on 10/02/2018. Patient presented to the e mergency department after he was found to have hypotension at his outpatient oncology appointment. On arrival he also complained of fevers, chills, and night sweats. He also noted changes in his chest tube output with increasing pain in the area as well. Lab workup in the emergency department revealed leukocytosis of 32.7 with 16% bands. He also had an elevated lactic acid of 2.9 and a mild troponin elevation of 0.04. He was afebrile, but tachycardic and tachypneic with borderline low blood pressure. Chest x-ray revealed a small right pleural effusion and follow-up CT chest revealed postsurgical changes with mild stranding along the right thoracostomy tube with debris within the tube i tself. There is also small amount of fluid in the right mediastinotomy with a foci of gas which may be postsurgical however the possibility of infection was considered as well. Patient received vancomycin, Zosyn, and Levaquin in the emergency department. He was admitted to hospital with cardiac thoracic surgery consultation. Patient was admitted to the hospital and evaluated by cardiothoracic surgery. His chest tube was placed to suction, he was started on IV fluids, and his Levaquin was substituted for doxycycline. During his hospitalization patient did not spike any fevers, however he did have one elevated temperature of 100.2 on day of admission. He has clinically improved since admission, he remains borderline tachycardic but improved since admission. His leukocytosis is within normal limits today at 10.4. His blood cultures obtained in the emergency department are growing gram-positive cocci, staph aureus by PCR. Today, the patient was evaluated in the room with cardiothoracic surgery present. Patient states that he is much improved, his initial shortness of breath, chills, night sweats have resolved. Per cardiothoracic surgery, his chest tube output is also started clear. Patient denies any fevers, chills, chest pain, shortness breath, abdominal pain, nausea, vomiting, diarrhea. - ROS Review of Systems: 10 system review of systems is performed and negative except as stated in history of present illness - Results CBC & Chem 7: 10/10/18 01:24 10/10/18 01:24 - Exam Vitals: Temp Pulse Resp BP Pulse Ox 98 F 84 15 123/67 95 10/10/18 07:42 10/10/18 07:42 10/10/18 07:42 10/10/18 07:42 10/10/18 07:42 Exam: General: Resting comfortably in bed, no acute distress HEENT: Head is atraumatic and normocephalic, pupils are equal, and shock or muscles intact, external ears and nares patent. Oral mucosa moist Neck: No JVD, trachea midline Chest: There is a right-sided chest tube in place draining purulent material with some debris within the tube as well. Mild tenderness to palpation around the chest tube. Cardiovascular: Regular rate and rhythm, no murmurs Respiratory: Clear to condition bilaterally, no rales rhonchi or wheezing Abdomen: Soft, nontender, obese Extremities: no cyanosis clubbing or edema Neurological: Alert and oriented 3, no obvious focal neurological deficits Psych: Appropriate mood and affect Atorvastatin Calcium [Lipitor] 20 mg PO DAILY 07/04/17 [History] Citalopram Hydrobromide [Citalopram HBr] 40 mg PO DAILY 07/04/17 [History] Dulaglutide [Trulicity] 1.5 mg IJ GATICA 07/04/17 [History] Losartan Potassium [Cozaar] 100 mg PO DAILY 07/04/17 [History] RX: Aspirin 81 mg PO DAILY 07/04/17 [History] RX: Insulin Glargine,Hum.rec.anlog [Toukassy Solostwilma] 95 unit SQ HS 07/04/17 [History] Tamsulosin HCl [Flomax] 0.4 mg PO DAILY 07/04/17 [History] Insulin ASPART [Novolog Flexpen] 5 unit SQ DAILY 08/29/18 [History] RX: Fluticasone Propionate Nasal [Flonase] 2 spray NS DAILY 08/29/18 [History] Albuterol Sulfate [Ventolin Hfa] 2 puff IH Q4H PRN 09/26/18 [History] Cyanocobalamin/Folic AC/Vit B6 [Folbee Tablet] 1 tab PO DAILY 09/26/18 [History] Icosapent Ethyl [Vascepa] 2 cap PO BID 09/26/18 [History] RX: hydroCHLOROthiazide [Hydrochlorothiazide] 25 mg PO DAILY 09/26/18 [History] Loratadine/Pseudoephedrine [Allergy Relief D-24Hr Tablet] 1 tab PO DAILY PRN 09/27/18 [History] Amiodarone [Cordarone] 200 mg PO DAILY 10/08/18 [History] Ferrous Sulfate [Iron] 325 mg PO DAILY 10/08/18 [History] Metoprolol Succinate [Toprol Xl] 100 mg PO DAILY 10/08/18 [History] RX: Gabapentin [Neurontin] 300 mg PO TID 10/08/18 [History] metFORMIN [Glucophage] 1,000 mg PO BIDWM 10/08/18 [History] Allergy/AdvReac Type Severity Reaction Status Date / Time canagliflozin [From Invokana] Allergy Rash Verified 10/08/18 11:36 dapagliflozin [From Farxiga] Allergy Blister Verified 10/08/18 11:36 oxycodone [Oxycodone] Allergy Rash Verified 10/08/18 11:36 - Assessment and Plan (1) Severe sepsis Current Visit: Yes Status: Acute -Severe sepsis on presentation with white blood cell count of 32.7 with 16% bandemia, heart rate 109, respiratory rate 20, and hypotension along with lactic acid level of 2.9 and troponin of 0.04 -Source likely secondary to empyema after bilobectomy of the right upper and middle lobes for adenocarcinoma -Currently he is being treated with vancomycin, Zosyn, and doxycycline -Chest tube continues to drain purulent material with debris, but this is reportedly improving -Blood cultures are growing gram-positive cocci, staph aureus by PCR MecA gene was negative Plan: -Repeat blood cultures ordered -We will continue vancomycin and add Unasyn 3 g every 6 hours -Discontinued Zosyn and doxycycline -Recommend TTE as patient has gram-positive cocci bacteremia -Infectious Disease team will not be present until Sunday10/14/2018 SNOMED Code(s): 08530393 (2) Gram-positive cocci bacteremia Current Visit: Yes Status: Acute -Severe sepsis on presentation -Suspect source secondary to empyema -Status post recent bilobectomy of the right lung for adenocarcinoma -Chest tube draining thick purulent material which appears to be an empyema on visualization. -Blood cultures grew gram-positive cocci, staph aureus by PCR -Suspect that empyema also contains MSSA -Currently on vancomycin, doxycycline, and Zosyn -Antibiotics changed to vancomycin and Unasyn -Repeat blood cultures ordered SNOMED Code(s): 362282864071, 927515123502 (3) Empyema of lung Current Visit: Yes Status: Acute -Empyema of right pleural space following right lung bilobectomy -Blood cultures growing MSSA, suspect that this is also present in the empyema -Cardiothoracic surgery managing chest tube SNOMED Code(s): 048845582 (4) Adenocarcinoma of right lung Current Visit: No Status: Acute -Follows [facility] -Status post right lung bilobectomy -Recommend holding chemotherapy until completion of treatment of his bacteremia SNOMED Code(s): 33969530619566863 (5) Diabetes mellitus, insulin dependent (IDDM), controlled Current Visit: Yes Status: Chronic -A1c of 8.2 on 09/18/18 -Recommend continued and improved outpatient management of patient's diabetes SNOMED Code(s): 07035181 Past Med Surg Social Fam HX - Past Medical History Medical history: arthritis, cancer, diabetes, hyperlipidemia, hypertension, thyroid disease Additional medical history: sleep apnea. 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 BPH, lung CA Psychiatric history: anxiety, depression, PTSD - Past Surgical History Surgical History: no surgical history, non-contributory Additional surgical history: septoplasty & turbinate reduction, portions of R lung removed-CA - Social History Smoking Status: Former smoker Smokeless Tobacco Status: No Alcohol use: none Drug use: none - Family History Father Living Status: Age at : 70 Cause of : cancer Hx Family Cancer: Yes Mother History Unknown: Yes Living Status: Consult Discharge Plan - Plan Referrals: Denzel Melara MD [Partnered Physician] - 10/22/18 1:25 pm Ashley Epps CNP [Primary Care Provider] - - Attending Attestation I examined this patient and my medical decision-making was reviewed with the Resident Physician. I agree with the documented findings, disposition and treatment plan as described except to the extent set forth below. This is an addendum to original report dictated by resident physician. Patient with stage III adenocarcinoma of the right lung status post bilobectomy of the upper and middle lobe by Dr. Ross was discharged home with a chest tube. Patient came back with severe sepsis from the cancer Center. Patient was noted to have bacteremia with staph aureus likely MSSA and there was empyema coming from the chest tube and noted on the CT chest. Patient was started on appropriate antibiotics were asked to evaluate the patient's make further recommendations. Assessment and plan: 1.Severe sepsis 2.Gram-positive cocci bacteremia 3.Empyema right chest 4.Adenocarcinoma of the right lung 5.Diabetes mellitus type 2 6. obesity Recommendations At this point patient is on vancomycin, Zosyn and doxycycline. No cultures obtained from the empyema fluid. Expect to be MSSA but cannot rule out polymicrobial. I we will DC the doxycycline because I am not concerned for atypical infection. I will continue vancomycin and I will de-escalate from Zosyn to Unasyn. Await blood cultures to finalize. Patient will also need a CANDY prior to discharge to rule out endocarditis. Duration of treatment probably 4-6 weeks so patient will need a PICC line placement. Monitor labs and for drug toxicity
[2018-10-10] MEDS: *HR* HYDROcodone/Acet 5/325 mg TABLET PO PRN (12:53)
--- NOTE | 2018-10-10 14:45 | Cardiothoracic Progress Note ---
Date of Encounter: 10/10/18 Time of Encounter: 14:43 - Assessment and plan (1) Empyema of lung Current Visit: Yes Status: Acute The assessment and plan as outlined above was discussed with the patient and/or family members who expressed understanding and agreement. All questions were answered. made rounds with id resident. drainage now more clear yellow. patient feeling better. plan 4 weeks of antibx. - Subjective Interval history: feels tired Vital Signs, Last 4 Hours Temp Pulse Resp BP Pulse Ox 10/10/18 10:55 97.8 F 79 16 107/65 94 Oxgyen Flow Rate Oxygen Flow Rate (LPM) 2 Weight 10/08/18 10/09/18 10/10/18 23:59 23:59 23:59 Weight 125.5 kg 125.4 kg 128.6 kg - Physical Examination General: Conversant, No Apparent Distress HEENT: Atraumatic, Normocephaly Neck: No JVD Cardiac: Reg Rate and Rhythm, Normal S1 and S2 Incision: No signs of infection, Dry/intact dressing Lungs: Normal Breath Sounds Neuro: Alert and responsive, No focal deficits noted - Labs 10/10/18 01:24 10/10/18 01:24 Lab Results, Last 24 hours 10/10/18 10/10/18 01:24 01:24 WBC 10.4 Hgb 9.6 L Hct 29.3 L Plt Count 248 Sodium 131 L Potassium 3.8 Chloride 99 Carbon Dioxide 26 BUN 20 Creatinine 0.94 Glucose 101 Calcium 8.2 L Magnesium 2.1 - Imaging Chest Xray: image reviewed Consult Discharge Plan - Plan Referrals: Denezl Melara MD [Partnered Physician] - 10/22/18 1:25 pm Ashley Epps CNP [Primary Care Provider] -
[2018-10-10] MEDS: Ampicillin/Sulbactam 3,000 MG in 0.9 % Sodium Chloride Mini Bag 100 ML IVPB SCH (16:59)
[2018-10-11] MEDS: Ampicillin/Sulbactam 3,000 MG in 0.9 % Sodium Chloride Mini Bag 100 ML IVPB SCH ×4 (00:47→18:10)
[2018-10-11] MEDS: *HR* HYDROcodone/Acet 10/325 mg TABLET PO PRN ×2 (00:50→11:59)
[2018-10-11 06:18] LABS: Hematocrit 29.8 % (37.5-50.1); Hemoglobin 9.8 g/dL (12.9-16.9); Mean Corpuscular HGB Conc 32.9 g/dL (31.6-35.5); Mean Corpuscular Volume 85.1 fL (83.0-100.0); Mean Platelet Volume 9.7 fL (9.4-12.4); Platelet Count 283 K/mcL (140-400); Red Cell Distribution Width 14.4 % (11.5-14.5)
[2018-10-11 06:44] LABS: BUN/Creatinine Ratio 18 (6-26); Blood Urea Nitrogen 13 mg/dL (6-20); Calcium 7.9 mg/dL (8.6-10.3); Carbon Dioxide 25 mEq/L (23-29); Chloride 103 mEq/L (98-107); Glucose 76 mg/dL (70-105); Magnesium 2.2 mg/dL (1.6-2.6); Osmolality,Calculated 279 (280-300); Potassium 3.8 mEq/L (3.5-5.1); Sodium 135 mEq/L (136-145); eGFR For Non-African Americans > 60 (> 60)
[2018-10-11] MEDS: *HR* Heparin 5,000 UNIT/ML VIAL SQ SCH ×2 (06:48→18:18)
[2018-10-11] MEDS: Insulin LISPRO 300 UNITS/3 ML VIAL SQ SCH ×4 (07:35→22:04)
--- NOTE | 2018-10-11 08:47 | Internal Med Progress Note ---
Hospitalist Progress Note - Encounter Date of Encounter: 10/11/18 Time of Encounter: 11:00 - Subjective Interval History: Patient is a 58-year-old male with past medical history significant for right lung adenocarcinoma stage III/grade 3 status post right upper and middle bilobectomy who presents due to fever and chills found to be septic secondary to right lung empyema Patient has been found to have a cultures positive for MSSA - Exam Vitals: Temp Pulse Resp BP Pulse Ox 97.7 F 86 16 108/63 96 10/11/18 07:24 10/11/18 07:24 10/11/18 07:24 10/11/18 07:24 10/11/18 07:24 Exam: Gen.: Nonacute distress, alert and oriented 3 ENT: Mucosal membranes moist Respiratory: Lungs are clear to auscultation bilaterally without any wheezing rhonchi or rales Cardiovascular: Normal S1 and S2 regular rate rhythm no murmurs rubs or gallops Abdomen: Soft, nontender and nondistended with positive bowel sounds Extremities: No lower extremity edema Skin: Normal colortion - Assessment and Plan (1) Empyema of lung Current Visit: Yes Status: Acute Assessment and Plan: Patient with past medical history significant for right lung adenocarcinoma stage III/grade 3 status post right upper and middle bilobectomy who presents due to fever and chills found to be septic secondary to right lung empyema Cardiothoracic following with recommendations for chest tube with low wall suction Patient's leukocytosis has resolved and remains afebrile Infectious disease consulted with recommendations to continue Unasyn; appreciate any further recommendations (2) MSSA bacteremia Current Visit: Yes Status: Acute Assessment and Plan: Patient found to have gram-positive cocci; final culture positive for MSSA Will de-escalate IV antibiotics by discontinue vancomycin and starting patient on oral doxycycline. Will order echocardiogram (3) Sepsis Current Visit: Yes Status: Suspected Assessment and Plan: Resolved; continue management as above (4) Essential hypertension Current Visit: Yes Status: Chronic Assessment and Plan: Continue patient's home dose of Toprol and Cozaar (5) Postoperative atrial fibrillation Current Visit: Yes Status: Chronic Assessment and Plan: History of postoperative atrial fibrillation Continue amiodarone (6) Diabetes mellitus, insulin dependent (IDDM), controlled Current Visit: Yes Status: Chronic Assessment and Plan: Continue basal insulin and coverage with sliding-scale insulin (7) HLD (hyperlipidemia) Current Visit: Yes Status: Acute Assessment and Plan: Continue statin (8) Mood disorder Current Visit: Yes Status: Acute Assessment and Plan: Continue SSRI DVT Prophylaxis: Heparin subcutaneous - Time Spent with Patient Total time spent is greater than 50% in coordination of care (as documented) at patient's floor/unit and/or counseling patient: Internal Medicine: Result - Labs CBC & Chem 7: 10/11/18 05:18 10/11/18 05:18 Labs: Short CBC 10/11/18 Range/Units 05:18 WBC 7.3 (4.3-11.1) K/mcL Hgb 9.8 L (12.9-16.9) g/dL Hct 29.8 L (37.5-50.1) % Plt Count 283 (140-400) K/mcL BMP 10/11/18 05:18 Sodium 135 L Potassium 3.8 Chloride 103 Carbon Dioxide 25 BUN 13 Creatinine 0.73 Glucose 76 Calcium 7.9 L - ABG Interpretation ABG results: PT/INR, D-dimer PT 14.0 Seconds (9.4-12.1) H 10/08/18 11:40 - Impressions Impressions Chest CT 10/08/18 12:23 IMPRESSION: 1. Postsurgical changes from right upper and middle lobectomies. There is a right thoracostomy tube in place with associated small right hydropneumothorax. Mild stranding along the right thoracostomy tube with associated debris within the tube itself is noted. 2. Subcutaneous emphysema in the right chest wall. 3. Small amount of fluid in the right mediastinum with a small focal collection in the right paratracheal space measuring 3.6 x 2.2 cm with a few foci of gas. Findings may be postsurgical in etiology, however infection is not excluded. Small amount of pneumomediastinum in the anterior aspect is also noted. 4. Trace perihepatic ascites with at least 2 discrete extraluminal foci of gas adjacent to the lateral liver. No other claude pneumoperitoneum. 5. Post-thoracotomy changes involving the right 6th and 7th ribs. These rib fractures appear slightly more displaced radiographically when compared to immediate postoperative film from 09/26/2018. Asymmetric enlargement of the right lateral chest wall musculature with mixed density likely reflecting areas of evolving hematoma secondary to recent surgery. D/ / 10/08/2018 14:01:04 Jovana Bangura MD / [facility] Interpreting Provider: Jovana Bangura MD Chest X-Ray 10/10/18 08:00 IMPRESSION: Right-sided chest tube in place with residual right pleural effusion noted status post previous partial right lung resection. D/ / 10/10/2018 08:33:40 Raymond Ospina MD / Kisha Solis Interpreting Provider: Raymond Ospina MD Chest X-Ray 10/11/18 08:00 IMPRESSION: Stable right chest tube, pleural effusion, and right-sided postsurgical changes. D/ / 10/11/2018 08:30:25 Gretchen Ortega MD / [facility] Interpreting Provider: Gretchen Ortega MD Consult Discharge Plan - Plan Referrals: Denzel Melara MD [Partnered Physician] - 10/22/18 1:25 pm Ashley Epps CNP [Primary Care Provider] - (3) Sepsis Qualifiers: Sepsis type: methicillin resistant Staphylococcus aureus Qualified Code(s): A41.02 - Sepsis due to Methicillin resistant Staphylococcus aureus
--- NOTE | 2018-10-11 08:55 | Cardiothoracic Progress Note ---
Date of Encounter: 10/11/18 Time of Encounter: 08:54 - Assessment and plan (1) Empyema of lung Current Visit: Yes Status: Acute The assessment and plan as outlined above was discussed with the patient and/or family members who expressed understanding and agreement. All questions were answered. 2 view chest xray today. hope to remove drain tomorrow. output thin and serous. - Subjective Interval history: feels tired Vital Signs, Last 4 Hours Temp Pulse Resp BP Pulse Ox 10/11/18 07:24 97.7 F 86 16 108/63 96 10/11/18 05:14 98.4 F 90 18 121/70 94 Oxgyen Flow Rate Oxygen Flow Rate (LPM) 2 Clinical Data, last 8 Hours Output, Chest Tube Drainage 80 Amount [Right Lateral Chest] Output, Chest Tube Drainage 110 Amount [Right Lateral Chest] Output, Urine Amount 750 Output, Urine Amount 800 Weight 10/09/18 10/10/18 10/11/18 23:59 23:59 23:59 Weight 125.4 kg 128.6 kg 128.7 kg - Physical Examination General: Conversant, No Apparent Distress HEENT: Atraumatic, Normocephaly Cardiac: Reg Rate and Rhythm, Normal S1 and S2 Incision: No signs of infection, Dry/intact dressing, Open to air Chest tubes: Minimal drainage Lungs: Normal Breath Sounds Neuro: Alert and responsive, No focal deficits noted - Labs 10/11/18 05:18 10/11/18 05:18 Lab Results, Last 24 hours 10/11/18 10/11/18 05:18 05:18 WBC 7.3 Hgb 9.8 L Hct 29.8 L Plt Count 283 Sodium 135 L Potassium 3.8 Chloride 103 Carbon Dioxide 25 BUN 13 Creatinine 0.73 Glucose 76 Calcium 7.9 L Magnesium 2.2 Consult Discharge Plan - Plan Referrals: Denzel Melara MD [Partnered Physician] - 10/22/18 1:25 pm Ashley Epps CNP [Primary Care Provider] -
[2018-10-11] MEDS: Aspirin 81 MG TAB.CHEW PO SCH (08:56)
[2018-10-11] MEDS: Vitamin B Complex/Vit C/Vit E 1 EACH TABLET PO SCH (08:56)
[2018-10-11] MEDS: hydroCHLOROthiazide 25 MG TABLET PO SCH (08:56)
[2018-10-11] MEDS: *HR* Amiodarone 200 MG TABLET PO SCH (08:56)
[2018-10-11] MEDS: Gabapentin 300 MG CAPSULE PO SCH ×3 (08:56→22:03)
[2018-10-11] MEDS: Metoprolol XL (24 HR) Succ 50 MG TAB.ER.24H PO SCH (08:57)
[2018-10-11] MEDS: Insulin DETEMIR 100 UNIT/ML X5UNITS SQ SCH ×2 (08:57→22:03)
[2018-10-11] MEDS: Fluticasone Propionate Nasal 50 MCG/SPRAY BOTTLE NS SCH (08:58)
[2018-10-11] MEDS ORDERED: Perflutren Lipid Microsphere 1.3 ML in 0.9 % Sodium Chloride 8.7 ML IVP ONE (20:54)
[2018-10-11] MEDS: Doxycycline 100 MG CAPSULE PO SCH (22:03)
[2018-10-11] MEDS: *HR* HYDROcodone/Acet 5/325 mg TABLET PO PRN (22:52)
[2018-10-12] MEDS: Ampicillin/Sulbactam 3,000 MG in 0.9 % Sodium Chloride Mini Bag 100 ML IVPB SCH ×4 (00:50→16:48)
[2018-10-12] MEDS: *HR* HYDROcodone/Acet 10/325 mg TABLET PO PRN ×2 (06:50→20:43)
[2018-10-12] MEDS: *HR* Heparin 5,000 UNIT/ML VIAL SQ SCH ×2 (06:50→16:48)
[2018-10-12] MEDS: hydroCHLOROthiazide 25 MG TABLET PO SCH (08:16)
[2018-10-12] MEDS: Metoprolol XL (24 HR) Succ 50 MG TAB.ER.24H PO SCH (08:16)
[2018-10-12] MEDS: Aspirin 81 MG TAB.CHEW PO SCH (08:17)
[2018-10-12] MEDS: Vitamin B Complex/Vit C/Vit E 1 EACH TABLET PO SCH (08:17)
[2018-10-12] MEDS: Doxycycline 100 MG CAPSULE PO SCH ×2 (08:17→20:43)
[2018-10-12] MEDS: Gabapentin 300 MG CAPSULE PO SCH ×3 (08:17→20:43)
[2018-10-12] MEDS: *HR* Amiodarone 200 MG TABLET PO SCH (08:17)
[2018-10-12] MEDS: Fluticasone Propionate Nasal 50 MCG/SPRAY BOTTLE NS SCH (08:21)
[2018-10-12] MEDS: Insulin LISPRO 300 UNITS/3 ML VIAL SQ SCH ×4 (08:21→20:50)
[2018-10-12] MEDS: Insulin DETEMIR 100 UNIT/ML X5UNITS SQ SCH ×2 (08:24→20:43)
--- NOTE | 2018-10-12 08:34 | Cardiothoracic Progress Note ---
Date of Encounter: 10/12/18 Time of Encounter: 08:32 - Assessment and plan (1) Empyema of lung Current Visit: Yes Status: Acute The assessment and plan as outlined above was discussed with the patient and/or family members who expressed understanding and agreement. All questions were answered. 2 view chest xray yesterday is good. output thin and serous. - Subjective Interval history: unhappy with nursing care last night. expressed this to me and current daytime nurse. we all thought it would be best to have the nursing supervisor agency appointments stop by and talk with the patient. Vital Signs, Last 4 Hours Temp Pulse Resp BP Pulse Ox 10/12/18 08:16 99.2 F 94 18 153/89 97 Oxgyen Flow Rate Oxygen Flow Rate (LPM) 2 Clinical Data, last 8 Hours Output, Chest Tube Drainage 75 Amount [Right Lateral Chest] Output, Chest Tube Drainage 70 Amount [Right Lateral Chest] Output, Chest Tube Drainage 90 Amount [Right Lateral Chest] Weight 10/10/18 10/11/18 10/12/18 23:59 23:59 23:59 Weight 128.6 kg 128.7 kg - Physical Examination General: Conversant, No Apparent Distress HEENT: Atraumatic, Normocephaly, Trachea midline Cardiac: Reg Rate and Rhythm, Normal S1 and S2 Incision: No signs of infection, Dry/intact dressing Chest tubes: Air leak, Other (decreasing amount and clearer, however, 235 in the last 24 hours) Lungs: Normal Breath Sounds Neuro: Alert and responsive, No focal deficits noted, Cranial nerves intact, Motor nerves intact Vascular: Normal capillary refill - Labs 10/11/18 05:18 10/11/18 05:18 Consult Discharge Plan - Plan Referrals: Denzel Mleara MD [Partnered Physician] - 10/22/18 1:25 pm Ashley Epps CNP [Primary Care Provider] -
--- NOTE | 2018-10-12 10:26 | Internal Med Progress Note ---
Hospitalist Progress Note - Encounter Date of Encounter: 10/12/18 Time of Encounter: 11:00 - Subjective Interval History: Patient is a 58-year-old male with past medical history significant for right lung adenocarcinoma stage III/grade 3 status post right upper and middle bilobectomy who presents due to fever and chills found to be septic secondary to right lung empyema Patient with chest tube draining right lung empyema and secretions are not as thick and decreasing in amount Patient has been found to have MSSA bacteremia - Exam Vitals: Temp Pulse Resp BP Pulse Ox 99.2 F 94 18 153/89 97 10/12/18 08:16 10/12/18 08:16 10/12/18 08:16 10/12/18 08:16 10/12/18 08:16 Exam: Gen.: Nonacute distress, alert and oriented 3 ENT: Mucosal membranes moist Respiratory: Lungs are clear to auscultation bilaterally without any wheezing rhonchi or rales Cardiovascular: Normal S1 and S2 regular rate rhythm no murmurs rubs or gallops Abdomen: Soft, nontender and nondistended with positive bowel sounds Extremities: No lower extremity edema Skin: Normal colortion - Assessment and Plan (1) Empyema of lung Current Visit: Yes Status: Acute Assessment and Plan: Patient with past medical history significant for right lung adenocarcinoma sta ge III/grade 3 status post right upper and middle bilobectomy who presents due to fever and chills found to be septic secondary to right lung empyema Cardiothoracic following with recommendations for chest tube with low wall suction Patient's leukocytosis has resolved and remains afebrile Patient with chest tube draining right lung empyema and secretions are not as thick and decreasing in amount Infectious disease consulted with recommendations to continue Unasyn; appreciate any further recommendations (2) MSSA bacteremia Current Visit: Yes Status: Acute Assessment and Plan: Patient found to have gram-positive cocci; final culture positive for MSSA De-escalate IV antibiotics on 10/11/18 by discontinuing vancomycin and starting patient on oral doxycycline. Echocardiogram ordered and results pending (3) Sepsis Current Visit: Yes Status: Suspected Assessment and Plan: Resolved; continue management as above (4) Essential hypertension Current Visit: Yes Status: Chronic Assessment and Plan: Continue patient's home dose of Toprol and Cozaar (5) Postoperative atrial fibrillation Current Visit: Yes Status: Chronic Assessment and Plan: History of postoperative atrial fibrillation Continue amiodarone (6) Diabetes mellitus, insulin dependent (IDDM), controlled Current Visit: Yes Status: Chronic Assessment and Plan: Continue basal insulin and coverage with sliding-scale insulin (7) HLD (hyperlipidemia) Current Visit: Yes Status: Acute Assessment and Plan: Continue statin (8) Mood disorder Current Visit: Yes Status: Acute Assessment and Plan: Continue SSRI DVT Prophylaxis: Heparin subcutaneous - Time Spent with Patient Total time spent is greater than 50% in coordination of care (as documented) at patient's floor/unit and/or counseling patient: Internal Medicine: Result - Labs CBC & Chem 7: 10/12/18 10:38 10/12/18 10:38 - ABG Interpretation ABG results: PT/INR, D-dimer PT 14.0 Seconds (9.4-12.1) H 10/08/18 11:40 - Impressions Impressions Chest X-Ray 10/11/18 08:00 IMPRESSION: Stable right chest tube, pleural effusion, and right-sided postsurgical changes. D/ / 10/11/2018 08:30:25 Gretchen Ortega MD / [facility] Interpreting Provider: Gretchen Ortega MD Chest X-Ray 10/11/18 08:56 IMPRESSION: 1. No change in positioning of right pleural catheter. 2. Unchanged right pleural effusion with no pneumothorax evident; similar-appearing right hemithorax subcutaneous emphysema. 3. Minimal right basilar atelectasis or infiltrate, status post partial right pneumonectomy. D/ / Anmol Salgado / Anmol Salgado Interpreting Provider: Anmol Salgado Consult Discharge Plan - Plan Referrals: Denzel Melara MD [Partnered Physician] - 10/22/18 1:25 pm Ashley Epps, BAR[employer] RIFLER [Primary Care Provider] - (3) Sepsis Qualifiers: Sepsis type: methicillin resistant Staphylococcus aureus Qualified Code(s): A41.02 - Sepsis due to Methicillin resistant Staphylococcus aureus
[2018-10-12 10:55] LABS: Basophils % 0.3 %; Eosinophils # 0.2 K/mcL (0.0-0.6); Eosinophils % 3.1 %; Hematocrit 29.8 % (37.5-50.1); Immature Granulocytes % 0.5 % (0-4); Lymphocytes # 1.4 K/mcL (0.6-4.6); Mean Corpuscular HGB Conc 33.6 g/dL (31.6-35.5); Mean Corpuscular Hemoglobin 28.2 pg (28.0-33.3); Mean Corpuscular Volume 83.9 fL (83.0-100.0); Mean Platelet Volume 9.3 fL (9.4-12.4); Monocytes % 13.8 %; Neutrophils # 4.7 K/mcL (1.6-8.9); Platelet Count 294 K/mcL (140-400); Red Blood Count 3.55 M/mcL (4.19-5.50); Red Cell Distribution Width 14.3 % (11.5-14.5); Segmented Neutrophils % 63.3 %
[2018-10-12 11:15] LABS: BUN/Creatinine Ratio 13 (6-26); Blood Urea Nitrogen 10 mg/dL (6-20); Calcium 8.4 mg/dL (8.6-10.3); Carbon Dioxide 26 mEq/L (23-29); Chloride 100 mEq/L (98-107); Glucose 206 mg/dL (70-105); Osmolality,Calculated 281 (280-300); Potassium 3.8 mEq/L (3.5-5.1); Sodium 133 mEq/L (136-145); eGFR For Non-African Americans > 60 (> 60)
[2018-10-13] MEDS: Ampicillin/Sulbactam 3,000 MG in 0.9 % Sodium Chloride Mini Bag 100 ML IVPB SCH ×5 (00:04→23:50)
[2018-10-13] MEDS: *HR* Heparin 5,000 UNIT/ML VIAL SQ SCH ×2 (06:01→17:16)
--- NOTE | 2018-10-13 07:51 | Internal Med Progress Note ---
Hospitalist Progress Note - Encounter Date of Encounter: 10/13/18 Time of Encounter: 11:00 - Subjective Interval History: Patient is a 58-year-old male with past medical history significant for right lung adenocarcinoma stage III/grade 3 status post right upper and middle bilobectomy who presents due to fever and chills found to be septic secondary to right lung empyema Patient with chest tube draining right lung empyema and secretions are not as thick and decreasing in amount; cardiothoracic surgery following for management/recommendations Patient also found to have MSSA bacteremia; repeat blood cultures negative to date - Exam Vitals: Temp Pulse Resp BP Pulse Ox 98.6 F 90 16 115/66 94 10/13/18 07:10 10/13/18 07:10 10/13/18 07:10 10/13/18 07:10 10/13/18 07:10 Exam: Gen.: Nonacute distress, alert and oriented 3 ENT: Mucosal membranes moist Respiratory: Lungs are clear to auscultation bilaterally without any wheezing rhonchi or rales Cardiovascular: Normal S1 and S2 regular rate rhythm no murmurs rubs or gallops Abdomen: Soft, nontender and nondistended with positive bowel sounds Extremities: No lower extremity edema Skin: Normal colortion - Assessment and Plan (1) Empyema of lung Current Visit: Yes Status: Acute Assessment and Plan: Patient with past medical history significant for right lung adenocarcinoma sta ge III/grade 3 status post right upper and middle bilobectomy who presents due to fever and chills found to be septic secondary to right lung empyema\ Patient's leukocytosis has resolved and remains afebrile Patient with chest tube draining right lung empyema and secretions are not as thick and decreasing in amount Infectious disease consulted with recommendations to continue Unasyn; appreciate any further recommendations Cardiothoracic surgery following for recommendations/management of chest tube (2) MSSA bacteremia Current Visit: Yes Status: Acute Assessment and Plan: Patient found to have gram-positive cocci; final culture positive for MSSA De-escalate IV antibiotics on 10/11/18 by discontinuing vancomycin and starting patient on oral doxycycline. Heart valves were not well visualized on echocardiogram therefore will need to order transesophageal echocardiogram (3) Sepsis Current Visit: Yes Status: Suspected Assessment and Plan: Resolved; continue management as above (4) Essential hypertension Current Visit: Yes Status: Chronic Assessment and Plan: Continue patient's home dose of Toprol and Cozaar (5) Postoperative atrial fibrillation Current Visit: Yes Status: Chronic Assessment and Plan: History of postoperative atrial fibrillation Continue amiodarone (6) Diabetes mellitus, insulin dependent (IDDM), controlled Current Visit: Yes Status: Chronic Assessment and Plan: Continue basal insulin and coverage with sliding-scale insulin (7) HLD (hyperlipidemia) Current Visit: Yes Status: Acute Assessment and Plan: Continue statin (8) Mood disorder Current Visit: Yes Status: Acute Assessment and Plan: Continue SSRI DVT Prophylaxis: Heparin subcutaneous - Time Spent with Patient Total time spent is greater than 50% in coordination of care (as documented) at patient's floor/unit and/or counseling patient: Internal Medicine: Result - Labs CBC & Chem 7: 10/13/18 08:17 10/13/18 08:17 Labs: Short CBC 10/12/18 Range/Units 10:38 WBC 7.4 (4.3-11.1) K/mcL Hgb 10.0 L (12.9-16.9) g/dL Hct 29.8 L (37.5-50.1) % Plt Count 294 (140-400) K/mcL Neutrophils # 4.7 (1.6-8.9) K/mcL BMP 10/12/18 10:38 Sodium 133 L Potassium 3.8 Chloride 100 Carbon Dioxide 26 BUN 10 Creatinine 0.76 Glucose 206 H Calcium 8.4 L - ABG Interpretation ABG results: PT/INR, D-dimer PT 14.0 Seconds (9.4-12.1) H 10/08/18 11:40 - Impressions Impressions Echocardiogram 10/11/18 08:51 Impressions: LVEF 65%. Definity was used. Indeterminate diastolic function. Normal right ventricular structure and function. Valves are not well visualized. No significant valvular dysfunction by Doppler. No pulmonary hypertension. Left Ventricular Wall Motion: Rest Echo Findings The apex, apical inferior, mid inferior, basal inferior, apical anterior, mid anterior and basal anterior moeller were not visualized. All other wall segments showed normal motion. Findings: Study Quality * Technically sub-optimal due to body habitus. ECG Findings * Normal sinus rhythm. Left Ventricle * LVEF 65%. * Normal LV chamber size, wall thickness and function. * Indeterminate diastolic function. Right Ventricle * Normal right ventricular structure and function. Left Atrium * Left atrium is not well visualized. Right Atrium * Right atrium is not well visualized. Aortic Valve * No aortic regurgitation. * Aortic valve not well visualized. * No aortic stenosis. Mitral Valve * No mitral regurgitation. * No mitral stenosis. * Mitral valve not well visualized. * Mild mitral annular calcification Tricuspid Valve * Tricuspid valve not well visualized. * Trace tricuspid regurgitation. * Estimated RA pressure is 8 mmHg. * Estimated RVSP is 23 mmHg. * No pulmonary hypertension. Pulmonic Valve * Pulmonic valve is not well visualized. * Signal not well obtained. Pulmonary Artery * Pulmonary artery not well visualized. Aorta * Normally sized aortic root. Pericardium * There is no pericardial effusion present. Interatrial Septum * No evidence of PFO by color Doppler. IVC * The IVC is not dilated. * < 50% respiratory change. Consult Discharge Plan - Plan Referrals: Denzel Melara MD [Partnered Physician] - 10/22/18 1:25 pm Ashley Epps, [employer] [Primary Care Provider] - (3) Sepsis Qualifiers: Sepsis type: methicillin resistant Staphylococcus aureus Qualified Code(s): A41.02 - Sepsis due to Methicillin resistant Staphylococcus aureus
[2018-10-13] MEDS: Metoprolol XL (24 HR) Succ 50 MG TAB.ER.24H PO SCH (08:23)
[2018-10-13] MEDS: hydroCHLOROthiazide 25 MG TABLET PO SCH (08:23)
[2018-10-13] MEDS: Gabapentin 300 MG CAPSULE PO SCH ×3 (08:23→21:36)
[2018-10-13] MEDS: *HR* Amiodarone 200 MG TABLET PO SCH (08:23)
[2018-10-13] MEDS: Insulin LISPRO 300 UNITS/3 ML VIAL SQ SCH ×4 (08:23→21:37)
[2018-10-13] MEDS: Aspirin 81 MG TAB.CHEW PO SCH (08:23)
[2018-10-13] MEDS: Doxycycline 100 MG CAPSULE PO SCH ×2 (08:23→21:37)
[2018-10-13] MEDS: Vitamin B Complex/Vit C/Vit E 1 EACH TABLET PO SCH (08:23)
[2018-10-13] MEDS: Insulin DETEMIR 100 UNIT/ML X5UNITS SQ SCH ×2 (08:24→21:37)
[2018-10-13] MEDS: Fluticasone Propionate Nasal 50 MCG/SPRAY BOTTLE NS SCH (08:25)
[2018-10-13 08:38] LABS: Basophils % 0.4 %; Eosinophils # 0.3 K/mcL (0.0-0.6); Eosinophils % 3.7 %; Hematocrit 33.3 % (37.5-50.1); Hemoglobin 10.9 g/dL (12.9-16.9); Lymphocytes # 1.8 K/mcL (0.6-4.6); Lymphocytes % 19.9 %; Mean Corpuscular HGB Conc 32.7 g/dL (31.6-35.5); Mean Corpuscular Hemoglobin 27.9 pg (28.0-33.3); Mean Corpuscular Volume 85.4 fL (83.0-100.0); Mean Platelet Volume 9.2 fL (9.4-12.4); Monocytes # 1.3 K/mcL (0.0-1.3); Monocytes % 14.5 %; Neutrophils # 5.4 K/mcL (1.6-8.9); Platelet Count 340 K/mcL (140-400); Red Cell Distribution Width 14.2 % (11.5-14.5); Segmented Neutrophils % 60.5 %
[2018-10-13 09:27] LABS: BUN/Creatinine Ratio 12 (6-26); Blood Urea Nitrogen 10 mg/dL (6-20); Calcium 9.1 mg/dL (8.6-10.3); Carbon Dioxide 31 mEq/L (23-29); Chloride 98 mEq/L (98-107); Glucose 130 mg/dL (70-105); Osmolality,Calculated 283 (280-300); Potassium 4.5 mEq/L (3.5-5.1); Sodium 136 mEq/L (136-145); eGFR For Non-African Americans > 60 (> 60)
--- NOTE | 2018-10-13 09:27 | Cardiothoracic Progress Note ---
Date of Encounter: 10/13/18 Time of Encounter: 09:26 - Assessment and plan (1) Empyema of lung Current Visit: Yes Status: Acute The assessment and plan as outlined above was discussed with the patient and/or family members who expressed understanding and agreement. All questions were answered. . output thin and serous. continue chest tube to suction - Subjective Interval history: unhappy with nursing care last night. expressed this to me and current daytime nurse. we all thought it would be best to have the nursing dimension warehouse supervisor stop by and talk with the patient. Vital Signs, Last 4 Hours Temp Pulse Resp BP Pulse Ox 10/13/18 07:10 98.6 F 90 16 115/66 94 Oxgyen Flow Rate Oxygen Flow Rate (LPM) 2 Clinical Data, last 8 Hours Output, Chest Tube Drainage 120 Amount [Right Lateral Chest] Output, Urine Amount 700 Weight 10/11/18 10/12/18 10/13/18 23:59 23:59 23:59 Weight 128.7 kg 125.5 kg - Physical Examination General: Conversant, No Apparent Distress, Well developed, Well nourished HEENT: Atraumatic, Normocephaly Cardiac: Reg Rate and Rhythm, Normal S1 and S2 Incision: No signs of infection, Dry/intact dressing Chest tubes: Air leak (thin serous drainage. level at 350) Neuro: Alert and responsive, No focal deficits noted, Cranial nerves intact - Labs 10/13/18 08:17 10/12/18 10:38 Lab Results, Last 24 hours 10/12/18 10/12/18 10/13/18 10:38 10:38 08:17 WBC 7.4 9.0 Hgb 10.0 L 10.9 L Hct 29.8 L 33.3 L Plt Count 294 340 Sodium 133 L Potassium 3.8 Chloride 100 Carbon Dioxide 26 BUN 10 Creatinine 0.76 Glucose 206 H Calcium 8.4 L Consult Discharge Plan - Plan Referrals: Denzel Melara MD [Partnered Physician] - 10/22/18 1:25 pm Ashley Epps CNP [Primary Care Provider] -
[2018-10-13] MEDS: *HR* HYDROcodone/Acet 10/325 mg TABLET PO PRN (21:37)
[2018-10-14] MEDS: *HR* Heparin 5,000 UNIT/ML VIAL SQ SCH ×2 (05:41→17:30)
[2018-10-14] MEDS: Ampicillin/Sulbactam 3,000 MG in 0.9 % Sodium Chloride Mini Bag 100 ML IVPB SCH ×3 (05:41→17:32)
[2018-10-14 06:49] LABS: Basophils % 0.4 %; Eosinophils # 0.3 K/mcL (0.0-0.6); Eosinophils % 3.6 %; Hematocrit 34.3 % (37.5-50.1); Hemoglobin 11.2 g/dL (12.9-16.9); Immature Granulocytes % 1.1 % (0-4); Lymphocytes # 1.9 K/mcL (0.6-4.6); Mean Corpuscular HGB Conc 32.7 g/dL (31.6-35.5); Mean Corpuscular Hemoglobin 27.9 pg (28.0-33.3); Mean Corpuscular Volume 85.5 fL (83.0-100.0); Mean Platelet Volume 9.2 fL (9.4-12.4); Monocytes # 1.2 K/mcL (0.0-1.3); Monocytes % 12.7 %; Neutrophils # 5.9 K/mcL (1.6-8.9); Platelet Count 332 K/mcL (140-400); Red Blood Count 4.01 M/mcL (4.19-5.50); Red Cell Distribution Width 14.3 % (11.5-14.5); Segmented Neutrophils % 62.2 %
[2018-10-14 07:09] LABS: BUN/Creatinine Ratio 13 (6-26); Blood Urea Nitrogen 10 mg/dL (6-20); Calcium 8.9 mg/dL (8.6-10.3); Carbon Dioxide 29 mEq/L (23-29); Chloride 101 mEq/L (98-107); Glucose 114 mg/dL (70-105); Osmolality,Calculated 284 (280-300); Potassium 4.3 mEq/L (3.5-5.1); Sodium 137 mEq/L (136-145); eGFR For Non-African Americans > 60 (> 60)
--- NOTE | 2018-10-14 08:45 | Cardiothoracic Progress Note ---
Date of Encounter: 10/14/18 Time of Encounter: 08:44 - Assessment and plan (1) Empyema of lung Current Visit: Yes Status: Acute The assessment and plan as outlined above was discussed with the patient and/or family members who expressed understanding and agreement. All questions were answered. . chest tube out. may discharge home. follow up with me in 2 weeks with a pa and lat chest xray. no real reason for echo. - Subjective Interval history: unhappy with nursing care last night. expressed this to me and current daytime nurse. we all thought it would be best to have the nursing animal maintenance supervisor stop by and talk with the patient. Vital Signs, Last 4 Hours Temp Pulse Resp BP Pulse Ox 10/14/18 07:08 98.2 F 94 16 129/70 94 Oxgyen Flow Rate Oxygen Flow Rate (LPM) 2 Clinical Data, last 8 Hours Output, Chest Tube Drainage 0 Amount [Right Lateral Chest] Weight 10/12/18 10/13/18 10/14/18 23:59 23:59 23:59 Weight 125.5 kg 123.6 kg - Physical Examination General: Conversant, No Apparent Distress, Well developed, Well nourished HEENT: Atraumatic, Normocephaly, Trachea midline Cardiac: Reg Rate and Rhythm, Normal S1 and S2 Chest tubes: Minimal drainage Lungs: Normal Breath Sounds Neuro: Alert and responsive, No focal deficits noted, Cranial nerves intact, Motor nerves intact - Labs 10/14/18 06:24 10/14/18 06:24 Lab Results, Last 24 hours 10/13/18 10/14/18 10/14/18 08:17 06:24 06:24 WBC 9.4 Hgb 11.2 L Hct 34.3 L Plt Count 332 Sodium 136 137 Potassium 4.5 4.3 Chloride 98 101 Carbon Dioxide 31 H 29 BUN 10 10 Creatinine 0.85 0.80 Glucose 130 H 114 H Calcium 9.1 8.9 Consult Discharge Plan - Plan Referrals: Denzel Melara MD [Partnered Physician] - 10/22/18 1:25 pm Ashley Epps CNP [Primary Care Provider] -
[2018-10-14] MEDS: Aspirin 81 MG TAB.CHEW PO SCH (09:06)
[2018-10-14] MEDS: Insulin DETEMIR 100 UNIT/ML X5UNITS SQ SCH ×2 (09:06→21:25)
[2018-10-14] MEDS: Metoprolol XL (24 HR) Succ 50 MG TAB.ER.24H PO SCH (09:06)
[2018-10-14] MEDS: *HR* Amiodarone 200 MG TABLET PO SCH (09:06)
[2018-10-14] MEDS: Doxycycline 100 MG CAPSULE PO SCH ×2 (10:31→21:11)
[2018-10-14] MEDS: Insulin LISPRO 300 UNITS/3 ML VIAL SQ SCH ×4 (10:31→21:24)
[2018-10-14] MEDS: hydroCHLOROthiazide 25 MG TABLET PO SCH (10:32)
[2018-10-14] MEDS: Gabapentin 300 MG CAPSULE PO SCH ×3 (10:32→21:11)
[2018-10-14] MEDS: Vitamin B Complex/Vit C/Vit E 1 EACH TABLET PO SCH (10:32)
[2018-10-14] MEDS: Fluticasone Propionate Nasal 50 MCG/SPRAY BOTTLE NS SCH (10:32)
[2018-10-14] MEDS ORDERED: Lidocaine Viscous Oral Soln 15 ML SOLUTION MM PRN (12:07)
[2018-10-14] MEDS ORDERED: *HR* Midazolam HCl 5 MG/5 ML VIAL IVP PRN (12:07)
[2018-10-14] MEDS ORDERED: 0.9 % Sodium Chloride 500 ML IVC ONE (12:07)
[2018-10-14] MEDS ORDERED: *HR* FentaNYL (PF) 100 MCG/2 ML VIAL IVP PRN (12:07)
--- NOTE | 2018-10-14 15:01 | Infectious Disease Progress No ---
ID Progress Note Date of Encounter: 10/14/18 Time of Encounter: 10:45 - Subjective Subjective: Patient seen and examined at bedside this morning. He reports that he is doing well and denies any fevers or chills. His chest tube was removed. Over the weekend his antibiotics were changed to Unasyn and doxycycline. TTE was performed however report states that the valves were not well visualized. Patient states that he will refuse a CANDY. - Objective CBC & Chem 7: 10/15/18 05:53 10/15/18 05:53 - Exam Vitals: Temp Pulse Resp BP Pulse Ox 97.6 F 85 14 130/81 97 10/14/18 12:22 10/14/18 12:22 10/14/18 12:22 10/14/18 12:22 10/14/18 12:22 Exam: General: Resting comfortably in bed, no acute distress HEENT: Head is atraumatic and normocephalic, pupils are equal, and shock or muscles intact, external ears and nares patent. Oral mucosa moist Neck: No JVD, trachea midline Chest: Chest tube removed, there is some serous fluid present at the site of removal. Cardiovascular: Regular rate and rhythm, no murmurs Respiratory: Clear to auscultation bilaterally, no rales rhonchi or wheezing Abdomen: Soft, nontender, obese Extremities: no cyanosis clubbing or edema Neurological: Alert and oriented 3, no obvious focal neurological deficits Psych: Appropriate mood and affect - Assessment and Plan (1) Severe sepsis Status: Acute Plan: -Patient presented with severe sepsis likely secondary to empyema and MSSA bacteremia -TTE negative, would like to obtain a CANDY but patient states that he will refuse a CANDY -Chest tube removed and patient has clinically improved and no longer septic -Treated with vancomycin and Unasyn, which was later de-escalated to doxycycline and Unasyn -Since patient has MSSA bacteremia he will require IV antibiotics -Recommend discontinuing Unasyn and doxycycline -Recommend starting IV cefazolin 2 g every 8 hours through October 24 -Recommend PO Flagyl 500 mg 3 times a day through October 24 -After IV cefazolin is completed recommend PO Augmentin 875 mg BID through November 14 SNOMED Code(s): 36158647 (2) Gram-positive cocci bacteremia Status: Acute -Blood cultures from admission are growing MSSA -Suspect source secondary to empyema -Repeat blood cultures no growth to date -Patient will require IV antibiotics for MSSA bacteremia as well as for the empyema -Antibiotic recommendation as above SNOMED Code(s): 559951599596, 608621545228 (3) Empyema of lung Status: Acute -Empyema of right pleural space following right lung bilobectomy -Blood cultures growing MSSA, suspect that this is also present in the empyema -Chest tube removed by CT surgery -Patient will require IV and by mouth antibiotics for MSSA bacteremia and empyema, antibiotic plan as above SNOMED Code(s): 998297763 (4) Adenocarcinoma of right lung Status: Acute -Follows [facility] -Status post right lung bilobectomy -Recommend holding chemotherapy until completion of treatment of his bacteremia SNOMED Code(s): 17689154665713923 (5) Diabetes mellitus, insulin dependent (IDDM), controlled Status: Chronic -A1c of 8.2 on 09/18/18 -Recommend continued and improved outpatient management of patient's diabetes SNOMED Code(s): 69524959 Consult Discharge Plan - Plan Instructions: Cefazolin (Injection), Chest Tubes (DC), Sepsis (DC) Referrals: Denzel Melara MD [Partnered Physician] - 10/22/18 1:25 pm Ashley Epps CNP [Primary Care Provider] - Carlitos Angela MD [Partnered Physician] - (Follow-up in two weeks. Call office for appointment.) Prescriptions: Cefazolin Sodium in 0.9 % NaCl [Cefazolin-0.9% NaCl 2 G/10 ml] 2 gm IV Q8HR 10 Days #30 syringe - Attending Attestation I examined this patient and my medical decision-making was reviewed with the Resident Physician. I agree with the documented findings, disposition and treatment plan as described except to the extent set forth below. Patient seen and examined. Patient insisting on going home today. After long discussion with Dr. Lopez and with the rn case manager and sr. social media & mobile manager, decision as to discharge on 2 weeks of IV Ancef with oral metronidazole followed by 4 weeks of Augmentin. That way we would have treated the bacteremia with 2 weeks of IV antibiotics and the empyema with 6 weeks of antibiotics total of 2 weeks IV followed by [address] place midline. Set up things as an outpatient. I reviewed all the scripts for the patient. Patient to follow-up with his PCP and cardiothoracic surgery. If anything changes clinically we will be happy to reevaluate as an outpatient.
[2018-10-14] MEDS: *HR* HYDROcodone/Acet 5/325 mg TABLET PO PRN (17:42)
--- NOTE | 2018-10-14 18:48 | Discharge Summary ---
Orders not resulted at time of discharge: Pending orders 10/10/18 15:25 Culture,Blood [BC] Routine 10/15/18 04:00 Basic Metabolic Panel AM 0400 Complete Blood Count [HEME] AM 0400 10/16/18 04:00 Basic Metabolic Panel AM 0400 Complete Blood Count [HEME] AM 0400 Date of Encounter: 10/14/18 Time of Encounter: 11:00 - Discharge Diagnosis (1) Empyema of lung Priority: Primary Status: Acute (2) MSSA bacteremia Priority: Primary Status: Acute (3) Sepsis Priority: Primary Status: Suspected Qualifiers: Sepsis type: methicillin resistant Staphylococcus aureus Qualified Code(s): A41.02 - Sepsis due to Methicillin resistant Staphylococcus aureus (4) Essential hypertension Priority: Secondary Status: Chronic (5) Postoperative atrial fibrillation Priority: Secondary Status: Chronic (6) Diabetes mellitus, insulin dependent (IDDM), controlled Priority: Secondary Status: Chronic (7) HLD (hyperlipidemia) Priority: Secondary Status: Acute Qualifiers: Hyperlipidemia type: unspecified Qualified Code(s): E78.5 - Hyperlipidemia, unspecified (8) Mood disorder Priority: Secondary Status: Acute Hospital course: Patient is a 58-year-old male with past medical history significant for right luis ng adenocarcinoma stage III/grade 3 status post right upper and middle bilobectomy who presents due to fever and chills found to be septic secondary to right lung empyema. The patients hospital stay cardiothoracic was consulted and patients chest tube was kept in place to suction until secretions decreased and then chest tube pulled. Infectious disease was consulted with recommendations for IV antibiotics for empyema. Patient was also found to have MSSA bacteremia and infectious disease recommendations for IV antibiotics. Patient will be discharged on antibiotics and to follow-up with cardiothoracic as an outpatient. - Time Spent with Patient Total time spent providing and/or coordinating discharge services: - Discharge Medications Prescriptions: New Cefazolin Sodium in 0.9 % NaCl [Cefazolin-0.9% NaCl 2 G/10 ml] 2 gm IV Q8HR 10 Days #30 syringe Continued Aspirin 81 mg PO DAILY Atorvastatin Calcium [Lipitor] 20 mg PO DAILY Citalopram Hydrobromide [Citalopram HBr] 40 mg PO DAILY Dulaglutide [Trulicity] 1.5 mg IJ GATICA Insulin Glargine,Hum.rec.anlog [Concepcion Hartman] 95 unit SQ HS Losartan Potassium [Cozaar] 100 mg PO DAILY Tamsulosin HCl [Flomax] 0.4 mg PO DAILY Insulin ASPART [Novolog Flexpen] 5 unit SQ DAILY Fluticasone Propionate Nasal [Flonase] 2 spray NS DAILY Cyanocobalamin/Folic AC/Vit B6 [Folbee Tablet] 1 tab PO DAILY Albuterol Sulfate [Ventolin Hfa] 2 puff IH Q4H PRN PRN Reason: Shortness Of Breath hydroCHLOROthiazide [Hydrochlorothiazide] 25 mg PO DAILY Icosapent Ethyl [Vascepa] 2 cap PO BID Loratadine/Pseudoephedrine [Allergy Relief D-24Hr Tablet] 1 tab PO DAILY PRN PRN Reason: ALLERGIES/CONGESTION Amiodarone [Cordarone] 200 mg PO DAILY Ferrous Sulfate [Iron] 325 mg PO DAILY Gabapentin [Neurontin] 300 mg PO TID metFORMIN [Glucophage] 1,000 mg PO BIDWM Metoprolol Succinate [Toprol Xl] 100 mg PO DAILY Home Medications: Aspirin 81 mg PO DAILY 07/04/17 [History] Atorvastatin Calcium [Lipitor] 20 mg PO DAILY 07/04/17 [History] Citalopram Hydrobromide [Citalopram HBr] 40 mg PO DAILY 07/04/17 [History] Dulaglutide [Trulicity] 1.5 mg IJ GATICA 07/04/17 [History] Insulin Glargine,Hum.rec.anlog [[place] Solostar] 95 unit SQ HS 07/04/17 [History] Losartan Potassium [Cozaar] 100 mg PO DAILY 07/04/17 [History] Tamsulosin HCl [Flomax] 0.4 mg PO DAILY 07/04/17 [History] Fluticasone Propionate Nasal [Flonase] 2 spray NS DAILY 08/29/18 [History] Insulin ASPART [Novolog Flexpen] 5 unit SQ DAILY 08/29/18 [History] Albuterol Sulfate [Ventolin Hfa] 2 puff IH Q4H PRN 09/26/18 [History] Cyanocobalamin/Folic AC/Vit B6 [Folbee Tablet] 1 tab PO DAILY 09/26/18 [History] Icosapent Ethyl [Vascepa] 2 cap PO BID 09/26/18 [History] hydroCHLOROthiazide [Hydrochlorothiazide] 25 mg PO DAILY 09/26/18 [History] Loratadine/Pseudoephedrine [Allergy Relief D-24Hr Tablet] 1 tab PO DAILY PRN 09/27/18 [History] Amiodarone [Cordarone] 200 mg PO DAILY 10/08/18 [History] Ferrous Sulfate [Iron] 325 mg PO DAILY 10/08/18 [History] Gabapentin [Neurontin] 300 mg PO TID 10/08/18 [History] Metoprolol Succinate [Toprol Xl] 100 mg PO DAILY 10/08/18 [History] metFORMIN [Glucophage] 1,000 mg PO BIDWM 10/08/18 [History] Cefazolin Sodium in 0.9 % NaCl [Cefazolin-0.9% NaCl 2 G/10 ml] 2 gm IV Q8HR 10 Days #30 syringe 10/14/18 [Rx] Allergies/Adverse Reactions: Allergy/AdvReac Type Severity Reaction Status Date / Time canagliflozin [From Invokana] Allergy Rash Verified 10/08/18 11:36 dapagliflozin [From Farxiga] Allergy Blister Verified 10/08/18 11:36 oxycodone [Oxycodone] Allergy Rash Verified 10/08/18 11:36 Date of admission: 10/08/18 15:20 Primary care physician: Ashley Epps CNP Consults: 10/08/18 14:26 Consult to Cardiothoracic Surgery [CONS] Stat Consulting Provider: Cardiothoracic Surgery [facility] Reason for Consult: post-op pneumonectomy/Dr Castellon Time Notified: 14:27 Call Completed: Yes 10/10/18 07:50 Consult to Infectious Diseases [CONS] Routine Consulting Provider: Infectious Disease [facility] Reason for Consult: Lung infection post thorocotamy Call Completed: No 10/14/18 17:27 Consult to Invasive Line Access Team [CONS] Routine Reason for Consult: Outpt. Atbs. for 2 weeks. Line Type: Midline - Constitutional Vitals: Temp Pulse Resp BP Pulse Ox 98.3 F 80 18 129/80 98 10/14/18 16:30 10/14/18 16:30 10/14/18 16:30 10/14/18 16:30 10/14/18 16:30 General appearance: Present: cooperative, mild distress, A&O X 3, morbidly obese, pleasant, answers questions appropriately Exam: Gen.: Nonacute distress, alert and oriented 3 ENT: Mucosal membranes moist Respiratory: Lungs are clear to auscultation bilaterally without any wheezing rhonchi or rales Cardiovascular: Normal S1 and S2 regular rate rhythm no murmurs rubs or gallops Abdomen: Soft, nontender and nondistended with positive bowel sounds Extremities: No lower extremity edema Skin: Normal colortion - Patient Status Disposition: Home Health Service Condition: Good - Discharge Instructions Follow Up With: Denzel Melara MD [Partnered Physician] - 10/22/18 1:25 pm Ashley Epps, L[employer] [Primary Care Provider] - Forms: ED Satisfaction Letter
[2018-10-14] MEDS: *HR* HYDROcodone/Acet 10/325 mg TABLET PO PRN (23:11)
[2018-10-15] MEDS: Ampicillin/Sulbactam 3,000 MG in 0.9 % Sodium Chloride Mini Bag 100 ML IVPB SCH ×2 (01:00→05:56)
[2018-10-15] MEDS: *HR* Heparin 5,000 UNIT/ML VIAL SQ SCH (05:56)
[2018-10-15] MEDS: *HR* HYDROcodone/Acet 10/325 mg TABLET PO PRN (06:07)
[2018-10-15 06:22] LABS: Basophils # 0.1 K/mcL (0.0-0.2); Basophils % 0.6 %; Eosinophils # 0.2 K/mcL (0.0-0.6); Eosinophils % 2.5 %; Hematocrit 30.9 % (37.5-50.1); Hemoglobin 10.2 g/dL (12.9-16.9); Immature Granulocytes % 1.2 % (0-4); Lymphocytes # 2.3 K/mcL (0.6-4.6); Lymphocytes % 25.2 %; Mean Corpuscular Hemoglobin 28.2 pg (28.0-33.3); Mean Corpuscular Volume 85.4 fL (83.0-100.0); Mean Platelet Volume 9.2 fL (9.4-12.4); Monocytes % 10.8 %; Neutrophils # 5.5 K/mcL (1.6-8.9); Platelet Count 319 K/mcL (140-400); Red Blood Count 3.62 M/mcL (4.19-5.50); Red Cell Distribution Width 14.4 % (11.5-14.5); Segmented Neutrophils % 59.7 %
[2018-10-15 06:45] LABS: BUN/Creatinine Ratio 13 (6-26); Blood Urea Nitrogen 11 mg/dL (6-20); Calcium 8.6 mg/dL (8.6-10.3); Carbon Dioxide 27 mEq/L (23-29); Chloride 102 mEq/L (98-107); Glucose 105 mg/dL (70-105); Osmolality,Calculated 286 (280-300); Potassium 4.4 mEq/L (3.5-5.1); Sodium 138 mEq/L (136-145); eGFR For Non-African Americans > 60 (> 60)
--- NOTE | 2018-10-15 09:11 | Physician Discharge Referral ---
Home Health/Hosp Referral Info Transfer to: Home Health - Diagnosis (1) Empyema of lung Status: Acute (2) MSSA bacteremia Status: Acute (3) Sepsis Status: Suspected (4) Essential hypertension Status: Chronic (5) Postoperative atrial fibrillation Status: Chronic (6) Diabetes mellitus, insulin dependent (IDDM), controlled Status: Chronic (7) HLD (hyperlipidemia) Status: Acute (8) Mood disorder Status: Acute - Respiratory Orders Smoking Cessation: Smoking cessation has been advised. For more information, call the [place] Tobacco Quit Line at 4-132-OQKI-NOW. - Services Needed Following services are medically necessary services: Nursing, Home Health Aide, Physical Therapy, Occupational Therapy, Home Infusion - Transfer Medications Prescriptions: Cefazolin Sodium in 0.9 % NaCl [Cefazolin-0.9% NaCl 2 G/10 ml] 2 gm IV Q8HR 10 Days #30 syringe Home Medications: Aspirin 81 mg PO DAILY 07/04/17 [History] Atorvastatin Calcium [Lipitor] 20 mg PO DAILY 07/04/17 [History] Citalopram Hydrobromide [Citalopram HBr] 40 mg PO DAILY 07/04/17 [History] Dulaglutide [Trulicity] 1.5 mg IJ GATICA 07/04/17 [History] Insulin Glargine,Hum.rec.anlog [[place] Solostar] 95 unit SQ HS 07/04/17 [History] Losartan Potassium [Cozaar] 100 mg PO DAILY 07/04/17 [History] Tamsulosin HCl [Flomax] 0.4 mg PO DAILY 07/04/17 [History] Fluticasone Propionate Nasal [Flonase] 2 spray NS DAILY 08/29/18 [History] Insulin ASPART [Novolog Flexpen] 5 unit SQ DAILY 08/29/18 [History] Albuterol Sulfate [Ventolin Hfa] 2 puff IH Q4H PRN 09/26/18 [History] Cyanocobalamin/Folic AC/Vit B6 [Folbee Tablet] 1 tab PO DAILY 09/26/18 [History] Icosapent Ethyl [Vascepa] 2 cap PO BID 09/26/18 [History] hydroCHLOROthiazide [Hydrochlorothiazide] 25 mg PO DAILY 09/26/18 [History] Loratadine/Pseudoephedrine [Allergy Relief D-24Hr Tablet] 1 tab PO DAILY PRN 09/27/18 [History] Amiodarone [Cordarone] 200 mg PO DAILY 10/08/18 [History] Ferrous Sulfate [Iron] 325 mg PO DAILY 10/08/18 [History] Gabapentin [Neurontin] 300 mg PO TID 10/08/18 [History] Metoprolol Succinate [Toprol Xl] 100 mg PO DAILY 10/08/18 [History] metFORMIN [Glucophage] 1,000 mg PO BIDWM 10/08/18 [History] Cefazolin Sodium in 0.9 % NaCl [Cefazolin-0.9% NaCl 2 G/10 ml] 2 gm IV Q8HR 10 Days #30 syringe 10/14/18 [Rx] Allergies/Adverse Reactions: Allergy/AdvReac Type Severity Reaction Status Date / Time canagliflozin [From Invokana] Allergy Rash Verified 10/08/18 11:36 dapagliflozin [From Farxiga] Allergy Blister Verified 10/08/18 11:36 oxycodone [Oxycodone] Allergy Rash Verified 10/08/18 11:36 Certification: Further, I certify that my clinical findings support that this patient is homebound (i.e. absences from home require considerable and taxing effort and are for medical reasons or sikhism services or infrequently or short duration when for other reasons) because: Homebound Reason: Patient requires assistance of a person or device to safely leave home Attestation: My signature below is to certify that this patient is under my care and that I, or nurse practitioner, or a physician's administrative library assistant working with me, has a [id number] encounter with this patient.
[2018-10-15] MEDS: Aspirin 81 MG TAB.CHEW PO SCH (10:02)
[2018-10-15] MEDS: Vitamin B Complex/Vit C/Vit E 1 EACH TABLET PO SCH (10:02)
[2018-10-15] MEDS: hydroCHLOROthiazide 25 MG TABLET PO SCH (10:02)
[2018-10-15] MEDS: *HR* Amiodarone 200 MG TABLET PO SCH (10:02)
[2018-10-15] MEDS: Metoprolol XL (24 HR) Succ 50 MG TAB.ER.24H PO SCH (10:02)
[2018-10-15] MEDS: Gabapentin 300 MG CAPSULE PO SCH (10:02)
[2018-10-15] MEDS: Doxycycline 100 MG CAPSULE PO SCH (10:02)
[2018-10-15] MEDS: Insulin LISPRO 300 UNITS/3 ML VIAL SQ SCH (10:07)
[2018-10-15] MEDS: Insulin DETEMIR 100 UNIT/ML X5UNITS SQ SCH (10:09)
[2018-10-16 00:06] VITALS: BP 108/64
== END 2018-10-15 10:22 | disposition home health service (06) | DRG 720 ==
LOC: EMEROOARM 11:23 → 2NENU 15:20 → SUATTDRO 15:20 → 2NENU 16:01
PROVIDERS: ADMIT Internal Medicine; ATTEND Hospitalist